=== PATIENT | female | born 1940 | race Caucasian/White ===

== ENCOUNTER 2016-06-10 10:31 | Emergency (ER) | payer MEDICARE, BC ==
[2016-06-10 10:48] VITALS: RESP 18
--- NOTE | 2016-06-10 10:54 | ED ---
Dizziness HPI - General Chief Complaint: Dizziness Stated Complaint: Dizziness Time Seen by Provider: 06/10/16 10:52 Source: patient Mode of arrival: EMS Limitations: no limitations - History of Present Illness Initial Comments: This patient is a 75-year-old woman who states that she started feeling spacey while she was using a step machine this morning. The patient states that she was at a rehab appointment to work on a shoulder injury. She was using a step or machine to move her upper extremities. She states that after about a minute and a half of this she began having what she described as feeling spacey. She denies that it was a frankly vertiginous feeling and also states that it wasn't exactly lightheadedness. She states that the therapist had her stop and rest and that they noted that her blood pressure was elevated above normal for her, with a systolic reading over 180. They then phoned EMS who brought her here. Patient denies other symptoms. MD Complaint: other ("Feeling spacey") Onset/Timin -: hour(s) Timing: sudden onset Description: other History of Same: No History of Trauma: No Severity: moderate Improves With: remaining still Worsens With: movement Associated Symptoms: denies other symptoms - Related Data Home Medications Medication Instructions Recorded Confirmed Albuterol Inhaler [Ventolin Hfa 1 - 2 puff INHALATION RT-QID PRN 06/10/16 Inhaler] Albuterol Nebulized [Ventolin 2.5 mg INHALATION RT-QID PRN 06/10/16 06/10/16 Nebulized] Ascorbic Acid [Vitamin C] 500 mg PO DAILY 06/10/16 06/10/16 Aspirin EC [Ecotrin Low Dose] 81 mg PO SUMOWEFR 06/10/16 06/10/16 Calcium Carbonate/Vitamin D3 1 tab PO DAILY 06/10/16 06/10/16 [Calcium 500-Vit D3 600 Tablet] Famotidine [Pepcid] 20 mg PO DAILY 06/10/16 06/10/16 Fluticasone Nasal [place] [Flonase 2 spr EA NOSTRIL DAILY PRN 06/10/16 06/10/16 Nasal [place]] Fluticasone/Salmeterol [Advair 1 puff INHALATION RT-BID 06/10/16 06/10/16 500-50 Diskus] Glucosamine Sulfate 500 mg PO DAILY 06/10/16 06/10/16 L.acidoph,Paracasei, B.lactis 1 cap PO DAILY 06/10/16 06/10/16 [Probiotic] Lansoprazole [Prevacid] 15 mg PO DAILY 06/10/16 06/10/16 Losartan [Cozaar] 50 mg PO DAILY 06/10/16 06/10/16 Multivitamins, Thera [Multivitamin] 1 tab PO DAILY 06/10/16 06/10/16 Simvastatin [Zocor] 40 mg PO HS 06/10/16 06/10/16 predniSONE 10 mg PO BID 06/10/16 06/10/16 Allergies Allergy/AdvReac Type Severity Reaction Status Date / Time cefaclor [From [facility]] Allergy Anaphylaxis Verified 06/10/16 11:44 Sulfa (Sulfonamide Allergy Rash/Hives Verified 06/10/16 11:44 Antibiotics) Review of Systems ROS Statement: Those systems with pertinent positive or pertinent negative responses have been documented in the HPI. ROS Other: All systems not noted in ROS Statement are negative. Constitutional: Denies: fever, chills, weakness Eyes: Denies: vision change ENT: Denies: congestion Respiratory: Denies: cough, dyspnea Cardiovascular: Denies: chest pain, palpitations, orthopnea, edema, syncope Gastrointestinal: Reports: nausea (Patient states she felt briefly nauseated in the ambulance while coming here, but that this has resolved.). Denies: abdominal pain, vomiting Genitourinary: Denies: dysuria, frequency, hematuria Musculoskeletal: Denies: back pain Skin: Denies: rash Neurological: Denies: headache, weakness, numbness, paresthesias, confusion Psychiatric: Reports: anxiety Past Medical History Past Medical History: Coronary Artery Disease (CAD), Cancer, Hypertension, Osteoarthritis (OA), Thyroid Disorder Additional Past Medical History / Comment(s): vertigo History of Any Multi-Drug Resistant Organisms: None Reported Past Surgical History: Appendectomy, Cholecystectomy, Hernia Repair, Orthopedic Surgery, Tubal Ligation Additional Past Surgical History / Comment(s): bladder suspension, parathyroidectomy carpel tunnel cataracts Past Psychological History: No Psychological Hx Reported Smoking Status: Former smoker Past Alcohol Use History: None Reported Past Drug Use History: None Reported General Exam Limitations: no limitations General appearance: alert, in no apparent distress Head exam: Present: atraumatic, normocephalic Eye exam: Present: normal appearance. Absent: scleral icterus, conjunctival injection, nystagmus ENT exam: Present: normal oropharynx Neck exam: Present: normal inspection Respiratory exam: Present: wheezes, decreased breath sounds. Absent: respiratory distress, rales, rhonchi, stridor, accessory muscle use Cardiovascular Exam: Present: regular rate, normal rhythm, normal heart sounds. Absent: systolic murmur, diastolic murmur, rubs, gallop GI/Abdominal exam: Present: soft. Absent: distended, tenderness, guarding, rebound, mass Extremities exam: Present: normal inspection, normal capillary refill. Absent: pedal edema, calf tenderness Back exam: Present: normal inspection. Absent: CVA tenderness (R), CVA tenderness (L) Neurological exam: Present: alert, oriented X3, CN II-XII intact. Absent: motor sensory deficit Skin exam: Present: warm, dry, intact, normal color. Absent: rash Course Vital Signs 06/10/16 06/10/16 10:42 12:52 Temperature 99.4 F Pulse Rate 89 81 Respiratory 18 18 Rate Blood Pressure 189/76 170/74 O2 Sat by Pulse 94 L 98 Oximetry EKG Findings - EKG Results: EKG: interpreted by ERMD, sinus rhythm (Rate 82 bpm), normal axis, normal QRS, normal ST/T, no acute changes - IA, Pacemaker, Normal: Normal tracing: normal tracing Medical Decision Making - Medical Decision Making This patient is a 75-year-old woman presenting for an episode of feeling "spacey " and some associated hypertension. The patient states that the symptoms have resolved. She is asymptomatic. Her blood pressure is improving here. I did discuss all of the findings with both the patient and with her physician, and offered the patient admission for further telemetry monitoring and further evaluation. The patient does state that she is feeling well and would much rather go home. She will return should any of the symptoms recur. Otherwise patient to follow-up with her physician for probable stress test, possible echocardiogram and possible duplex carotid. - Lab Data Result diagrams: 06/10/16 11:11 06/10/16 11:11 Lab Results 06/10/16 06/10/16 06/10/16 Range/Units 11:11 11:11 11:49 WBC 4.7 (3.8-10.6) k/uL RBC 4.55 (3.80-5.40) m/uL Hgb 13.9 (11.4-16.0) gm/dL Hct 41.3 (34.0-46.0) % MCV 90.9 (80.0-100.0) fL MCH 30.6 (25.0-35.0) pg MCHC 33.6 (31.0-37.0) g/dL RDW 12.9 (11.5-15.5) % Plt Count 193 (150-450) k/uL Neutrophils % 54 % Lymphocytes % 33 % Monocytes % 6 % Eosinophils % 2 % Basophils % 1 % Neutrophils # 2.6 (1.3-7.7) k/uL Lymphocytes # 1.5 (1.0-4.8) k/uL Monocytes # 0.3 (0-1.0) k/uL Eosinophils # 0.1 (0-0.7) k/uL Basophils # 0.0 (0-0.2) k/uL Sodium 144 (137-145) mmol/L Potassium 4.4 (3.5-5.1) mmol/L Chloride 105 (98-107) mmol/L Carbon Dioxide 30 (22-30) mmol/L Anion Gap 9 mmol/L BUN 16 (7-17) mg/dL Creatinine 0.50 L (0.52-1.04) mg/dL Est GFR (MDRD) Af Amer >60 (>60 ml/min/1.73 sqM) Est GFR (MDRD) Non-Af >60 (>60 ml/min/1.73 sqM) Glucose 106 H (74-99) mg/dL Calcium 9.5 (8.4-10.2) mg/dL Total Bilirubin 1.1 (0.2-1.3) mg/dL AST 22 (14-36) U/L ALT 33 (9-52) U/L Alkaline Phosphatase 80 (38-126) U/L Total Protein 6.8 (6.3-8.2) g/dL Albumin 4.3 (3.5-5.0) g/dL Urine Color Light Yellow Urine Appearance Clear (Clear) Urine pH 7.0 (5.0-8.0) Ur Specific [place] 1.006 (1.001-1.035) Urine Protein Negative (Negative) Urine Glucose (UA) Negative (Negative) Urine Ketones Negative (Negative) Urine Blood Negative (Negative) Urine Nitrate Negative (Negative) Urine Bilirubin Negative (Negative) Urine Urobilinogen <2.0 (<2.0) mg/dL Ur Leukocyte Esterase Negative (Negative) Disposition Clinical Impression: Hypertension Disposition: HOME SELF-CARE Condition: Good Instructions: Dizziness (ED), Hypertension (ED) Additional Instructions: As we discussed, follow-up with your doctor to arrange the stress test. Should your symptoms recur or if you are feeling worse in anyway return to the emergency department immediately. Referrals: John Sanz MD [Primary Care Provider] - 1-2 days
[2016-06-10 11:43] LABS: Basophils % (A) 1 %; CH 31.1; CHCM 34.4; Eosinophils # (A) 0.1 k/uL (0-0.7); Eosinophils % (A) 2 %; HCT 41.3 % (34.0-46.0); HDW 2.67; HGB 13.9 gm/dL (11.4-16.0); Luc # (Auto) 0.17; Luc % (Auto) 4; Lymphocytes # (A) 1.5 k/uL (1.0-4.8); Lymphocytes % (A) 33 %; MCH 30.6 pg (25.0-35.0); MCHC 33.6 g/dL (31.0-37.0); MCV 90.9 fL (80.0-100.0); Mean Platelet Volume 7.2; Monocytes # (A) 0.3 k/uL (0-1.0); Monocytes % (A) 6 %; Neutrophils # (A) 2.6 k/uL (1.3-7.7); Neutrophils % (A) 54 %; RBC 4.55 m/uL (3.80-5.40); RDW 12.9 % (11.5-15.5); WBC 4.7 k/uL (3.8-10.6); WBC (Perox) 4.91
[2016-06-10 12:00] LABS: ALT 33 U/L (9-52); AST 22 U/L (14-36); Alkaline Phosphatase 80 U/L (38-126); Anion Gap 9 mmol/L; Blood Urea Nitrogen 16 mg/dL (7-17); Calcium 9.5 mg/dL (8.4-10.2); Carbon Dioxide 30 mmol/L (22-30); Chloride 105 mmol/L (98-107); Glucose 106 mg/dL (74-99); Non-African American GFR(MDRD) >60 (>60 ml/min/1.73 sqM); Potassium 4.4 mmol/L (3.5-5.1); Sodium 144 mmol/L (137-145); Total Bilirubin 1.1 mg/dL (0.2-1.3); Total Protein 6.8 g/dL (6.3-8.2)
[2016-06-10 12:01] LABS: Appearance,Urine Clear (Clear); Bilirubin,Urine Negative (Negative); Glucose,Urine (UA) Negative (Negative); Ketones,Urine Negative (Negative); Leukocyte Esterase,Urine Negative (Negative); Nitrite,Urine Negative (Negative); Protein,Urine Negative (Negative); Specific Gravity,Urine 1.006 (1.001-1.035); UA Billing (MACRO vs. MICRO) CHEM; Urobilinogen,Urine <2.0 mg/dL (<2.0)
--- NOTE | 2016-06-10 12:12 | CT ---
EXAMINATION TYPE: CT brain wo con DATE OF EXAM: 06/10/2016 12:01 PM COMPARISON: NONE HISTORY: Patient complains of high blood pressure and near syncopal episode. Patient denies headache . CT DLP: 763.6 mGycm Automated exposure control for dose reduction was used. FINDINGS: There is no acute intracranial hemorrhage, mass effect, or midline shift identified. The ventricles and sulci are within normal limits in size. Periventricular white matter shows low attenuation. Ther e is cortical atrophy which is likely age-related. The globes are intact and the visualized sinuses a re clear. IMPRESSION: No acute intracranial hemorrhage, mass effect, or midline shift is seen.
--- NOTE | 2016-06-10 12:17 | XR ---
EXAMINATION TYPE: XR chest 1V portable DATE OF EXAM: 06/10/2016 12:09 PM COMPARISON: 02/04/2016 HISTORY: Dizziness TECHNIQUE: Single frontal view of the chest is obtained. FINDINGS: No pneumothorax. Previous surgery is noted. Hyperinflation is compatible COPD. Arthropathy of the shoulders. Chronic atelectasis right lung base noted which is stable from previous. IMPRESSION: 1. 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
[2016-06-10 14:00] VITALS: BP 171/80; PULSE 78; TEMP 98
== END 2016-06-10 14:00 | disposition home or self-care (01) ==
LOC: EC 10:31
DX: I10 Essential (primary) hypertension (principal); I25.10 Atherosclerotic heart disease of native coronary artery without angina pectoris; M19.90 Unspecified osteoarthritis, unspecified site; Z79.82 Long term (current) use of aspirin; Z79.51 Long term (current) use of inhaled steroids; Z79.52 Long term (current) use of systemic steroids; Z79.899 Other long term (current) drug therapy; Z88.1 Allergy status to other antibiotic agents; Z88.2 Allergy status to sulfonamides; Z87.891 Personal history of nicotine dependence
CPT/HCPCS: 36415; 70450; 71010; 80053; 81003; 85025; 93005; 99285

== ENCOUNTER → 2016-06-22 | Outpatient (CLI) | payer MEDICARE, BC ==
[~2016-06-22] MED LIST: REGADENOSON 0.4 MG/5 ML SYRINGE IV ONE
--- NOTE | 2016-06-22 11:31 | NM ---
EXAMINATION TYPE: NM stress lexiscan cardiolite DATE OF EXAM: 06/22/2016 10:58 AM COMPARISON: NONE HISTORY: 75-year-old female angina at rest TECHNIQUE: After the intravenous administration of 10.94 mCi Tc 99m Sestamibi - Cardiolite resting S PECT images acquired 45 minutes post injection. The patient received 0.4mg Lexiscan, 27.2 mCi Tc 99m Sestamibi - Stress images obtained [address] injection. 125 mg aminophylline was also administered. FINDINGS: Review of stress and rest SPECT images demonstrates a possible small fixed defect along the anterior mid to apical wall. No reversibility identified. The patient's heart is somewhat small and the auto matic tracking is felt to be inaccurate Gated analysis shows relatively normal wall motion but the es timated left ventricular ejection fraction is 36 %. EKG showed ST depression during the exam at appro ximately 3 minutes. TID is calculated at 0.91 which is within normal limits. IMPRESSION: Small heart. The automatic contour tracking is felt to be inaccurate. The gated images seem to show r elatively normal contractility but LVEF is calculated at 36%. Again, this is probably inaccurate. Th ere may be a small area of old infarct along the anterior mid to apical wall. However, no suspicious reversibility is seen. Further clinical testing as indicated.
--- NOTE | 2016-06-23 12:53 | EST ---
DATE OF SERVICE: 06/22/2016 AGE: 75Y SEX: F HT: 59" WT: 95 lbs. Lexiscan Cardiolite Stress Test *Heart Rate Blood Pressure *Rest: 84 Rest: 151/76 * *Max. Achieved: 107 Maximum BP: 168/62 85% PMHR: 122 100% PMHR: 143 *METS: - INDICATIONS: Chest pain, angina. MEDICATIONS: - Patient was given Lexiscan injection over a period of 15 seconds. Peak heart rate of 107 was achieved. Maximum blood pressure of 168/62 mmHg was noted. EKG shows normal sinus rhythm with normal HI interval and QRS duration with minimal nonspecific ST-T changes were noted during Lexiscan injection, again minor ST-T changes were noted. FINAL IMPRESSION: This electrocardiogram is not suggestive of ischemia. The results of the nuclear study will follow.
== END | disposition home or self-care (01) ==
LOC: RADNMMAIN 08:07
PROVIDERS: ATTEND Family Medicine
DX: I20.8 Other forms of angina pectoris (principal)
CPT/HCPCS: 93017; 78452; A9500; J2785

== ENCOUNTER 2016-07-17 21:22 | Emergency (ER) | payer MEDICARE, BC ==
[2016-07-17] MEDS ORDERED: ACETAMINOPHEN TAB 500 MG TAB PO STA (21:32)
[2016-07-17] MEDS: SODIUM CHLORIDE 0.9% 500 ML IV SCH ×2 (21:34→22:15)
[2016-07-17] MEDS ORDERED: IBUPROFEN IV 600 MG in SODIUM CHLORIDE 0.9% 250 ML IV STA (21:37)
--- NOTE | 2016-07-17 21:39 | ED ---
General Adult HPI - General Stated complaint: SOB Time Seen by Provider: 07/17/16 21:22 - History of Present Illness Initial comments: This is a 75-year-old female presents emergency Department stating that she has been coughing and short of breath lately. Patient states she's been wearing her oxygen all day instead of just at night. Patient states she's had chills as well. Patient states she become much more weak and nauseous at the point where she cannot continue to get around and help her who is in hospice. She called the events this point time. Patient denies any chest pain or palpitations. Patient denies any headache patient denies numbness weakness. Patient denies any abdominal pain patient states she is nauseated and has had the dry heaves but has had no diarrhea. Patient states she did get a flu shot this year as well. Patient denies any dysuria hematuria urinary frequency - Related Data Home Medications Medication Instructions Recorded Confirmed Albuterol Inhaler [Ventolin Hfa 1 - 2 puff INHALATION RT-QID PRN 06/10/16 Inhaler] Albuterol Nebulized [Ventolin 2.5 mg INHALATION RT-QID PRN 06/10/16 06/10/16 Nebulized] Ascorbic Acid [Vitamin C] 500 mg PO DAILY 06/10/16 06/10/16 Aspirin EC [Ecotrin Low Dose] 81 mg PO SUMOWEFR 06/10/16 06/10/16 Calcium Carbonate/Vitamin D3 1 tab PO DAILY 06/10/16 06/10/16 [Calcium 500-Vit D3 600 Tablet] Famotidine [Pepcid] 20 mg PO DAILY 06/10/16 06/10/16 Fluticasone Nasal [place] [Flonase 2 spr EA NOSTRIL DAILY PRN 06/10/16 06/10/16 Nasal [place]] Fluticasone/Salmeterol [Advair 1 puff INHALATION RT-BID 06/10/16 06/10/16 500-50 Diskus] Glucosamine Sulfate 500 mg PO DAILY 06/10/16 06/10/16 L.acidoph,Paracasei, B.lactis 1 cap PO DAILY 06/10/16 06/10/16 [Probiotic] Lansoprazole [Prevacid] 15 mg PO DAILY 06/10/16 06/10/16 Losartan [Cozaar] 50 mg PO DAILY 06/10/16 06/10/16 Multivitamins, Thera [Multivitamin] 1 tab PO DAILY 06/10/16 06/10/16 Simvastatin [Zocor] 40 mg PO HS 06/10/16 06/10/16 predniSONE 10 mg PO BID 06/10/16 06/10/16 Previous Rx's Medication Instructions Recorded Levofloxacin [Levaquin] 750 mg PO DAILY #10 tab 07/17/16 Allergies Allergy/AdvReac Type Severity Reaction Status Date / Time cefaclor [From Ceclor] Allergy Anaphylaxis Verified 07/17/16 21:34 Sulfa (Sulfonamide Allergy Rash/Hives Verified 07/17/16 21:34 Antibiotics) Review of Systems ROS Statement: Those systems with pertinent positive or pertinent negative responses have been documented in the HPI. ROS Other: All systems not noted in ROS Statement are negative. Past Medical History Past Medical History: Coronary Artery Disease (CAD), Cancer, Hypertension, Osteoarthritis (OA), Thyroid Disorder Additional Past Medical History / Comment(s): vertigo History of Any Multi-Drug Resistant Organisms: None Reported Past Surgical History: Appendectomy, Cholecystectomy, Hernia Repair, Orthopedic Surgery, Tubal Ligation Additional Past Surgical History / Comment(s): bladder suspension, parathyroidectomy carpel tunnel cataracts Past Psychological History: No Psychological Hx Reported Smoking Status: Former smoker Past Alcohol Use History: None Reported Past Drug Use History: None Reported General Exam - General Exam Comments Initial Comments: GENERAL: Patient is well-developed and well-nourished. Patient is nontoxic and well- hydrated and is in moderate distress. Patient's temperature was 102.4 ENT: Neck is soft and supple. No significant lymphadenopathy is noted. Oropharynx is clear. Moist mucous membranes. Neck has full range of motion without eliciting any pain. EYES: The sclera were anicteric and conjunctiva were pink and moist. Extraocular movements were intact and pupils were equal round and reactive to light. Eyelids were unremarkable. PULMONARY: Unlabored respirations. Good breath sounds bilaterally. Breath sounds on the right CARDIOVASCULAR: Patient is tachycardic at about 140 beats minute ABDOMEN: Soft and nontender with normal bowel sounds. No palpable organomegaly was noted. There is no palpable pulsatile mass. SKIN: Skin is clear with no lesions or rashes and otherwise unremarkable. NEUROLOGIC: Patient is alert and oriented x3. Cranial nerves II through XII are grossly intact. Motor and sensory are also intact. Normal speech, volume and content. Symmetrical smile. MUSCULOSKELETAL: Normal extremities with adequate strength and full range of motion. No lower extremity swelling or edema. No calf tenderness. LYMPHATICS: No significant lymphadenopathy is noted PSYCHIATRIC: Normal psychiatric evaluation. Normal interpersonal interactions appears functionally intact in deals appropriately with others. No signs of depression. No signs of anxiety. Course Vital Signs 07/17/16 21:34 Temperature 102.2 F H Pulse Rate 138 H Respiratory 28 H Rate Blood Pressure 158/86 O2 Sat by Pulse 98 Oximetry Medical Decision Making - Medical Decision Making EKG shows sinus tachycardia at 140 beats a minute HI interval 126 dresses 70 QT interval is 282 QTC is 4:30. Patient's EKG shows no ST segment elevation or depression or T-wave abdomen is noted Patient is x-ray shows a left lower lobe pneumonia. I went back in to talk to the patient she refused to stay she stated she has a home she has to take care of and she wanted to go home and not stay in the emergency department. - Lab Data Result diagrams: 07/17/16 21:50 07/17/16 21:50 Lab Results 07/17/16 07/17/16 07/17/16 Range/Units 21:50 21:50 21:50 WBC 15.5 H (3.8-10.6) k/uL RBC 4.23 (3.80-5.40) m/uL Hgb 13.3 (11.4-16.0) gm/dL Hct 38.0 (34.0-46.0) % MCV 89.9 (80.0-100.0) fL MCH 31.6 (25.0-35.0) pg MCHC 35.2 (31.0-37.0) g/dL RDW 12.7 (11.5-15.5) % Plt Count 170 (150-450) k/uL Neutrophils % 91 % Lymphocytes % 4 % Monocytes % 4 % Eosinophils % 0 % Basophils % 1 % Neutrophils # 14.1 H (1.3-7.7) k/uL Lymphocytes # 0.5 L (1.0-4.8) k/uL Monocytes # 0.6 (0-1.0) k/uL Eosinophils # 0.0 (0-0.7) k/uL Basophils # 0.1 (0-0.2) k/uL PT (9.0-12.0) sec INR (<1.1) APTT (22.0-30.0) sec Sodium 135 L (137-145) mmol/L Potassium 4.4 (3.5-5.1) mmol/L Chloride 98 (98-107) mmol/L Carbon Dioxide 24 (22-30) mmol/L Anion Gap 13 mmol/L BUN 15 (7-17) mg/dL Creatinine 0.60 (0.52-1.04) mg/dL Est GFR (MDRD) Af Amer >60 (>60 ml/min/1.73 sqM) Est GFR (MDRD) Non-Af >60 (>60 ml/min/1.73 sqM) Glucose 119 H (74-99) mg/dL Plasma Lactic Acid Addy (0.7-2.0) mmol/L Calcium 9.1 (8.4-10.2) mg/dL Total Bilirubin 1.7 H (0.2-1.3) mg/dL AST 21 (14-36) U/L ALT 27 (9-52) U/L Alkaline Phosphatase 80 (38-126) U/L Total Creatine Kinase 81 (30-135) U/L CK-MB (CK-2) 1.4 (0.0-2.4) ng/mL CK-MB (CK-2) Rel Index 1.7 Troponin I <0.012 (0.000-0.034) ng/mL Total Protein 6.4 (6.3-8.2) g/dL Albumin 3.8 (3.5-5.0) g/dL Cortisol 27 ug/dL Urine Color Urine Appearance (Clear) Urine pH (5.0-8.0) Ur Specific [place] (1.001-1.035) Urine Protein (Negative) Urine Glucose (UA) (Negative) Urine Ketones (Negative) Urine Blood (Negative) Urine Nitrite (Negative) Urine Bilirubin (Negative) Urine Urobilinogen (<2.0) mg/dL Ur Leukocyte Esterase (Negative) Urine RBC (0-5) /hpf Urine WBC (0-5) /hpf Ur Squamous Epith Cells (0-4) /hpf Urine Bacteria (None) /hpf Hyaline Casts (0-2) /lpf Urine Mucus (None) /hpf Influenza Type A RNA (Not Detectd) Influenza Type B (PCR) (Not Detectd) 07/17/16 07/17/16 07/17/16 Range/Units 21:50 21:50 21:50 WBC (3.8-10.6) k/uL RBC (3.80-5.40) m/uL Hgb (11.4-16.0) gm/dL Hct (34.0-46.0) % MCV (80.0-100.0) fL MCH (25.0-35.0) pg MCHC (31.0-37.0) g/dL RDW (11.5-15.5) % Plt Count (150-450) k/uL Neutrophils % % Lymphocytes % % Monocytes % % Eosinophils % % Basophils % % Neutrophils # (1.3-7.7) k/uL Lymphocytes # (1.0-4.8) k/uL Monocytes # (0-1.0) k/uL Eosinophils # (0-0.7) k/uL Basophils # (0-0.2) k/uL PT 10.1 (9.0-12.0) sec INR 1.0 (<1.1) APTT 26.6 (22.0-30.0) sec Sodium (137-145) mmol/L Potassium (3.5-5.1) mmol/L Chloride (98-107) mmol/L Carbon Dioxide (22-30) mmol/L Anion Gap mmol/L BUN (7-17) mg/dL Creatinine (0.52-1.04) mg/dL Est GFR (MDRD) Af Amer (>60 ml/min/1.73 sqM) Est GFR (MDRD) Non-Af (>60 ml/min/1.73 sqM) Glucose (74-99) mg/dL Plasma Lactic Acid Addy 1.2 (0.7-2.0) mmol/L Calcium (8.4-10.2) mg/dL Total Bilirubin (0.2-1.3) mg/dL AST (14-36) U/L ALT (9-52) U/L Alkaline Phosphatase (38-126) U/L Total Creatine Kinase (30-135) U/L CK-MB (CK-2) (0.0-2.4) ng/mL CK-MB (CK-2) Rel Index Troponin I (0.000-0.034) ng/mL Total Protein (6.3-8.2) g/dL Albumin (3.5-5.0) g/dL Cortisol ug/dL Urine Color Urine Appearance (Clear) Urine pH (5.0-8.0) Ur Specific [place] (1.001-1.035) Urine Protein (Negative) Urine Glucose (UA) (Negative) Urine Ketones (Negative) Urine Blood (Negative) Urine Nitrite (Negative) Urine Bilirubin (Negative) Urine Urobilinogen (<2.0) mg/dL Ur Leukocyte Esterase (Negative) Urine RBC (0-5) /hpf Urine WBC (0-5) /hpf Ur Squamous Epith Cells (0-4) /hpf Urine Bacteria (None) /hpf Hyaline Casts (0-2) /lpf Urine Mucus (None) /hpf Influenza Type A RNA Not Detected (Not Detectd) Influenza Type B (PCR) Not Detected (Not Detectd) 07/17/16 Range/Units 21:50 WBC (3.8-10.6) k/uL RBC (3.80-5.40) m/uL Hgb (11.4-16.0) gm/dL Hct (34.0-46.0) % MCV (80.0-100.0) fL MCH (25.0-35.0) pg MCHC (31.0-37.0) g/dL RDW (11.5-15.5) % Plt Count (150-450) k/uL Neutrophils % % Lymphocytes % % Monocytes % % Eosinophils % % Basophils % % Neutrophils # (1.3-7.7) k/uL Lymphocytes # (1.0-4.8) k/uL Monocytes # (0-1.0) k/uL Eosinophils # (0-0.7) k/uL Basophils # (0-0.2) k/uL PT (9.0-12.0) sec INR (<1.1) APTT (22.0-30.0) sec Sodium (137-145) mmol/L Potassium (3.5-5.1) mmol/L Chloride (98-107) mmol/L Carbon Dioxide (22-30) mmol/L Anion Gap mmol/L BUN (7-17) mg/dL Creatinine (0.52-1.04) mg/dL Est GFR (MDRD) Af Amer (>60 ml/min/1.73 sqM) Est GFR (MDRD) Non-Af (>60 ml/min/1.73 sqM) Glucose (74-99) mg/dL Plasma Lactic Acid Addy (0.7-2.0) mmol/L Calcium (8.4-10.2) mg/dL Total Bilirubin (0.2-1.3) mg/dL AST (14-36) U/L ALT (9-52) U/L Alkaline Phosphatase (38-126) U/L Total Creatine Kinase (30-135) U/L CK-MB (CK-2) (0.0-2.4) ng/mL CK-MB (CK-2) Rel Index Troponin I (0.000-0.034) ng/mL Total Protein (6.3-8.2) g/dL Albumin (3.5-5.0) g/dL Cortisol ug/dL Urine Color Yellow Urine Appearance Cloudy H (Clear) Urine pH 6.0 (5.0-8.0) Ur Specific [place] 1.024 (1.001-1.035) Urine Protein 1+ H (Negative) Urine Glucose (UA) Negative (Negative) Urine Ketones 3+ H (Negative) Urine Blood Trace H (Negative) Urine Nitrite Negative (Negative) Urine Bilirubin Negative (Negative) Urine Urobilinogen <2.0 (<2.0) mg/dL Ur Leukocyte Esterase Large H (Negative) Urine RBC 2 (0-5) /hpf Urine WBC 20 H (0-5) /hpf Ur Squamous Epith Cells 52 H (0-4) /hpf Urine Bacteria Occasional H (None) /hpf Hyaline Casts 31 H (0-2) /lpf Urine Mucus Occasional H (None) /hpf Influenza Type A RNA (Not Detectd) Influenza Type B (PCR) (Not Detectd) Disposition Clinical Impression: Pneumonia Disposition: HOME SELF-CARE Instructions: Bacterial Pneumonia (ED) Prescriptions: Levofloxacin [Levaquin] 750 mg PO DAILY #10 tab Referrals: John Sanz MD [Primary Care Provider] - 1-2 days Time of Disposition: 23:13
[2016-07-17 22:20] LABS: Basophils # (A) 0.1 k/uL (0-0.2); Basophils % (A) 1 %; CH 31.1; CHCM 34.8; Eosinophils % (A) 0 %; HDW 2.63; HGB 13.3 gm/dL (11.4-16.0); Luc # (Auto) 0.15; Luc % (Auto) 1; Lymphocytes # (A) 0.5 k/uL (1.0-4.8); Lymphocytes % (A) 4 %; MCH 31.6 pg (25.0-35.0); MCHC 35.2 g/dL (31.0-37.0); MCV 89.9 fL (80.0-100.0); Mean Platelet Volume 7.8; Monocytes # (A) 0.6 k/uL (0-1.0); Monocytes % (A) 4 %; Neutrophils # (A) 14.1 k/uL (1.3-7.7); Neutrophils % (A) 91 %; RBC 4.23 m/uL (3.80-5.40); RDW 12.7 % (11.5-15.5); WBC 15.5 k/uL (3.8-10.6); WBC (Perox) 15.36
[2016-07-17] MEDS ORDERED: ONDANSETRON 4 MG/2 ML VIAL IVP STA (22:25)
[2016-07-17] MEDS ORDERED: ACETAMINOPHEN IV (For NPO) 1,000 MG in EMPTY BAG 1 BAG IVPB STA (22:25)
[2016-07-17 22:32] LABS: Partial Thromboplastin Time 26.6 sec (22.0-30.0); Prothrombin Time 10.1 sec (9.0-12.0)
--- NOTE | 2016-07-17 22:32 | XR ---
EXAM: XR Chest, 2 Views. CLINICAL HISTORY: Reason: Fever TECHNIQUE: Frontal and lateral views of the chest. COMPARISON: Chest radiograph on 06/10/2016 FINDINGS: Hardware: Stable surgical clips in the region of the right hilum. Lungs/pleura: Again seen is hyperinflation of the lungs, suggestive of COPD. Stable linear opacities at the right lung base likely representing atelectasis versus scarring. Mild opacity at the left lung base may also represent atelectasis. No focal consolidation. No pleural effusion or pneumothorax. Heart/mediastinum: Atherosclerotic calcifications in the aorta. No cardiomegaly. Soft tissues: Unremarkable. Bones: Degenerative changes of the left shoulder and acromioclavicular joint. No acute fracture. Upper abdomen: Unremarkable. IMPRESSION: 1. Stable right basilar atelectasis versus scarring. Mild opacity at the left lung base also represent atelectasis, but developing pneumonia is not entirely excluded. 2. Stable hyperinflation of the lungs, compatible with COPD.
[2016-07-17 22:36] LABS: Appearance,Urine Cloudy (Clear); Bacteria,Urine Occasional /hpf; Bilirubin,Urine Negative (Negative); Glucose,Urine (UA) Negative (Negative); Ketones,Urine 3+ (Negative); Leukocyte Esterase,Urine Large (Negative); Mucus,Urine Occasional /hpf; Nitrite,Urine Negative (Negative); Particle Count 25903; Protein,Urine 1+ (Negative); RBC,Urine 2 /hpf (0-5); Specific Gravity,Urine 1.024 (1.001-1.035); Squamous Epithelial Cell,Urine 52 /hpf (0-4); UA Billing (MACRO vs. MICRO) MICRO; Urobilinogen,Urine <2.0 mg/dL (<2.0); WBC,Urine 20 /hpf (0-5)
[2016-07-17 22:39] LABS: ALT 27 U/L (9-52); AST 21 U/L (14-36); Alkaline Phosphatase 80 U/L (38-126); Anion Gap 13 mmol/L; Blood Urea Nitrogen 15 mg/dL (7-17); Calcium 9.1 mg/dL (8.4-10.2); Carbon Dioxide 24 mmol/L (22-30); Chloride 98 mmol/L (98-107); Glucose 119 mg/dL (74-99); Non-African American GFR(MDRD) >60 (>60 ml/min/1.73 sqM); Potassium 4.4 mmol/L (3.5-5.1); Sodium 135 mmol/L (137-145); Total Bilirubin 1.7 mg/dL (0.2-1.3); Total Protein 6.4 g/dL (6.3-8.2)
[2016-07-17 22:41] LABS: Creatine Kinase 81 U/L (30-135)
[2016-07-17 22:53] LABS: Creatine Kinase MB 1.4 ng/mL (0.0-2.4); Troponin I <0.012 ng/mL (0.000-0.034)
[2016-07-17] MEDS ORDERED: LEVOFLOXACIN 750MG-D5W PMX 750 MG in DEXTROSE/WATER 1 150ML.BAG IVPB STA (23:09)
[2016-07-17] MEDS ORDERED: LEVOFLOXACIN 750 MG TAB PO STA (23:14)
[2016-07-17] MEDS ORDERED: LEVOFLOXACIN 750MG-D5W PMX 750 MG in DEXTROSE/WATER 1 150ML.BAG IVPB SCH (23:15)
[2016-07-17 23:21] VITALS: RESP 20; TEMP 100.5
[2016-07-17 23:49] VITALS: BP 114/63; PULSE 99
== END 2016-07-17 23:47 | disposition home or self-care (01) ==
LOC: EC 21:22
DX: J18.9 Pneumonia, unspecified organism (principal); Z99.81 Dependence on supplemental oxygen; Z79.899 Other long term (current) drug therapy; Z87.891 Personal history of nicotine dependence; Z88.1 Allergy status to other antibiotic agents; Z88.0 Allergy status to penicillin
CPT/HCPCS: 99285; 96365; 96375; 96361; 36415; 93005; 80053; 82533; 82550; 82553; 83605; 84484; 85025; 85610; 85730; 81001; 87040; 87086; 87502; 71020; J2405; J0131; J1741

== ENCOUNTER → 2016-09-26 | Day surgery (SDC) | payer MEDICARE, BC ==
[2016-09-22 16:02] VITALS: BMI 19.2
[~2016-09-26] MED LIST changes: +MIDAZOLAM 2 MG/2 ML VIAL ONE; -REGADENOSON 0.4 MG/5 ML SYRINGE IV ONE; +SODIUM CHLORIDE 0.9% 1,000 ML IV SCH; +SODIUM CHLORIDE 0.9% 250 ML IV ONE; +fentaNYL (PF) 50 MCG/ML 2 ML AMP IV ONE; +fentaNYL (PF) 50 MCG/ML 2 ML AMP ONE
[2016-09-26] MEDS: BENZOCAINE SPRAY 100 APPLIC/CAN TOPICAL ONE ×2 (07:57→08:03)
[2016-09-26] MEDS: MIDAZOLAM 2 MG/2 ML VIAL IVP ONE ×2 (08:07→08:10)
[2016-09-26 08:32] VITALS: RESP 16
--- NOTE | 2016-09-26 08:55 | ECHOT ---
DATE OF SERVICE: INDICATION: Pulmonary hypertension. This is a 76-year-old lady who was advised to undergo a transesophageal echo given the valvular heart disease and pulmonary hypertension noted on 2-D echo. PROCEDURE NOTE: After obtaining informed consent, transesophageal echocardiogram was performed in the left lateral position using an Omni probe. Local and IV sedation were obtained using Xylocaine spray, intravenous Versed and fentanyl. Patient tolerated the procedure well without any obvious immediate complications. The total sedation was time was 15 minutes. FINDINGS: 1. AORTIC VALVE: Aortic valve is a 3 leaflet valve. There is mild aortic regurgitation noted. 2. MITRAL VALVE: Mitral valve is anatomically normal. There is mild mitral regurgitation noted. 3. INTERATRIAL SEPTUM: There is no evidence of [id number]-[id number] shunt by color flow Doppler. There is right to left shunt noted with agitated saline contrast study. 4. Left atrium appears mildly enlarged. 5. Right atrium and right ventricle seen within normal limits. 6. Left ventricle has normal size and shows mild LV systolic dysfunction with an ejection fraction of around 45%. 7. Left atrial appendage appears normal. 8. Aortic root measures normally. There is moderate atherosclerotic changes noted. 9. There is mild tricuspid regurgitation noted. CONCLUSION: 1. Mild mitral and aortic regurgitation noted. 2. There is evidence of right to left shunt by agitated saline contrast study. 3. I reviewed information with the patient. She does not require further cardiac workup at this time. 4. The pulmonary hypertension is probably related to the underlying lung disease.
[2016-09-26 09:24] VITALS: TEMP 98
[2016-09-26 10:41] VITALS: PULSE 60
[2016-09-26 10:42] VITALS: BP 127/58
== END ==
LOC: CATHCVL 06:50
PROVIDERS: ATTEND Internal Medicine Cardiovascular Disease
DX: I08.3 Combined rheumatic disorders of mitral, aortic and tricuspid valves (principal); I27.2 Other secondary pulmonary hypertension; I70.0 Atherosclerosis of aorta; I10 Essential (primary) hypertension; E78.5 Hyperlipidemia, unspecified; Z79.82 Long term (current) use of aspirin; Z79.51 Long term (current) use of inhaled steroids; Z79.52 Long term (current) use of systemic steroids; Z79.899 Other long term (current) drug therapy; Z82.49 Family history of ischemic heart disease and other diseases of the circulatory system; Z88.1 Allergy status to other antibiotic agents; Z88.2 Allergy status to sulfonamides
CPT/HCPCS: 93312; 93320; 93325; J2250; J3010

== ENCOUNTER → 2016-11-03 | Outpatient (CLI) | payer MEDICARE, BC ==
--- NOTE | 2016-11-04 09:47 | MM ---
Reason for exam: screening (asymptomatic). Last mammogram was performed 1 year ago. History: Patient is postmenopausal and has history of other cancer at age 59. Family history of breast cancer in maternal aunt. Benign excisional biopsy of the left breast, 1991. Took hormonal contraceptives beginning at age 24. Physical Findings: A clinical breast exam by your physician is recommended on an annual basis and results should be correlated with mammographic findings. MG 3D Screening Mammo W/Cad Bilateral CC and MLO view(s) were taken. Prior study comparison: October 30, 2015, bilateral MG 3d screening mammo w/cad. July 23, 2014, mammogram, performed at [place]. There are scattered fibroglandular densities. No significant changes when compared with prior studies. ASSESSMENT: Benign, BI-RAD 2 RECOMMENDATION: Routine screening mammogram of both breasts in 1 year.
== END | disposition home or self-care (01) ==
LOC: RADMAMWWP 09:12
PROVIDERS: ATTEND Family Medicine
DX: Z12.31 Encounter for screening mammogram for malignant neoplasm of breast (principal)
CPT/HCPCS: 77063; G0202

== ENCOUNTER → 2017-07-14 | Outpatient (CLI) | payer MEDICARE ==
--- NOTE | 2017-07-15 10:40 | XR ---
Left knee HISTORY: Altered mental status, pain 3 views of the left knee Chondrocalcinosis is present along the menisci. There is joint space loss in the medial compartment, subchondral sclerosis. Alignment is maintained, bone mineralization is reduced. No evident joint effu brittny. 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
--- NOTE | 2017-07-15 10:45 | CT ---
EXAMINATION TYPE: CT brain wo con DATE OF EXAM: 07/14/2017 COMPARISON: Prior CT brain 06/10/2016 HISTORY: memory loss CT DLP: 1121 mGycm Automated exposure control for dose reduction was used. Helical acquisition through the brain. FINDINGS: There are cerebral vascular calcifications present. No hemorrhage or hydrocephalus. White matter demy elination changes are again noted. The calvarium is intact. Paranasal sinuses and mastoid air cells a s visualized are normal. IMPRESSION: NO ACUTE ABNORMALITY, STABLE EXAM. AGE-RELATED CHANGES OF ATROPHY AND PROBABLE CHRONIC SMALL VESSEL I SCHEMIA.
== END | disposition home or self-care (01) ==
LOC: RADCTMAIN 17:11
PROVIDERS: ATTEND Family Medicine
DX: M17.12 Unilateral primary osteoarthritis, left knee (principal); G31.1 Senile degeneration of brain, not elsewhere classified
CPT/HCPCS: 70450

== ENCOUNTER → 2018-07-18 | Outpatient (CLI) | payer MEDICARE ==
--- NOTE | 2018-07-18 16:17 | XR ---
EXAMINATION TYPE: XR Hip Complete 2 views LT, XR knee complete 3 views LT DATE OF EXAM: 07/18/2018 COMPARISON: NONE HISTORY: 77-year-old female with joint pain FINDINGS: Left hip: Mild to moderate axial joint space narrowing with marginal spurring. No acute fracture, subluxation, or dislocation. Left knee: Mild narrowing of joint space in the medial compartment. There is some meniscal chondrocalcinosis dem onstrated. Small infrapatellar knee joint effusion. Extensor mechanism remains intact. No acute fract ure, subluxation, dislocation. IMPRESSION: 1. Left hip: Mild to moderate left apical weight. 2. Left knee: Mild joint space narrowing within the medial compartment. A weight-bearing view could b lashonda assess the degree of cartilage and joint space loss. Meniscal chondrocalcinosis could be idiopa thic or could reflect underlying CPPD. Small knee joint effusion.
--- NOTE | 2018-07-19 10:35 | MM ---
Reason for exam: screening (asymptomatic). Last mammogram was performed 1 year and 8 months ago. History: Patient is postmenopausal and has history of other cancer at age 59. Family history of breast cancer in maternal aunt. Benign excisional biopsy of the left breast, 1991. Took hormonal contraceptives beginning at age 24. Physical Findings: A clinical breast exam by your physician is recommended on an annual basis and results should be correlated with mammographic findings. MG Screening Mammo w CAD Bilateral CC and MLO view(s) were taken. Prior study comparison: November 03, 2016, bilateral MG 3d screening mammo w/cad. October 30, 2015, bilateral MG 3d screening mammo w/cad. There are scattered fibroglandular densities. No significant changes when compared with prior studies. ASSESSMENT: Negative, BI-RAD 1 RECOMMENDATION: Routine screening mammogram of both breasts in 1 year.
== END | disposition home or self-care (01) ==
LOC: RADMAMWWP 15:04
PROVIDERS: ATTEND Family Medicine
DX: Z12.31 Encounter for screening mammogram for malignant neoplasm of breast (principal); M25.862 Other specified joint disorders, left knee
CPT/HCPCS: 73502; 77067

== ENCOUNTER 2019-04-06 17:15 | Emergency (ER) | payer MEDICARE ==
[2019-04-06] MEDS ORDERED: diphenhydrAMINE 50 MG/ML 1 ML VIAL IVP STA (17:25)
[2019-04-06] MEDS ORDERED: METOCLOPRAMIDE 5 MG/ML 2 ML VIAL IVP STA (17:25)
[2019-04-06 17:30] VITALS: RESP 18; TEMP 98.2
[2019-04-06 18:24] LABS: ALT 19 U/L (4-34); AST 24 U/L (14-36); African American GFR (CKD) >90 (>60 ml/min/1.73 sqM); Alkaline Phosphatase 74 U/L (38-126); Anion Gap 5 mmol/L; Blood Urea Nitrogen 17 mg/dL (7-17); Calcium 9.4 mg/dL (8.4-10.2); Carbon Dioxide 32 mmol/L (22-30); Chloride 102 mmol/L (98-107); Glucose 119 mg/dL (74-99); Non-African American GFR(CKD) >90 (>60 ml/min/1.73 sqM); Potassium 3.7 mmol/L (3.5-5.1); Sodium 139 mmol/L (137-145); Total Bilirubin 1.3 mg/dL (0.2-1.3); Total Protein 6.6 g/dL (6.3-8.2)
[2019-04-06 18:29] LABS: Basophils % (A) 0 %; Eosinophils % (A) 1 %; HCT 36.8 % (34.0-46.0); HGB 12.6 gm/dL (11.4-16.0); Lymphocytes # (A) 0.8 k/uL (1.0-4.8); Lymphocytes % (A) 14 %; MCH 31.1 pg (25.0-35.0); MCHC 34.4 g/dL (31.0-37.0); MCV 90.4 fL (80.0-100.0); Mean Platelet Volume 7.1; Monocytes # (A) 0.4 k/uL (0-1.0); Monocytes % (A) 6 %; Neutrophils # (A) 4.6 k/uL (1.3-7.7); Neutrophils % (A) 77 %; Platelet Count 194 k/uL (150-450); RBC 4.07 m/uL (3.80-5.40); RDW 13.6 % (11.5-15.5); WBC 5.9 k/uL (3.8-10.6)
--- NOTE | 2019-04-06 19:08 | CT ---
EXAMINATION TYPE: CT brain wo con DATE OF EXAM: 04/06/2019 COMPARISON: 07/14/2017 HISTORY: Headaches without injury. CT DLP: 1080.4 mGycm Automated exposure control for dose reduction was used. There is some cerebral cortical atrophy. There is no mass effect nor midline shift. There is no sign of intracranial hemorrhage. Calvarium is intact. IMPRESSION: Mild atrophy. No acute intracranial abnormality. No change.
[2019-04-06] MEDS ORDERED: KETOROLAC 30 MG/ML 1 ML VIAL IVP STA (19:32)
[2019-04-06] MEDS ORDERED: MAGNESIUM OXIDE 400 MG TAB PO STA (19:33)
--- NOTE | 2019-04-06 19:35 | ED ---
Headache HPI - General Chief Complaint: Headache Stated Complaint: Hypertension, Headache Time Seen by Provider: 04/06/19 17:25 Mode of arrival: EMS Limitations: no limitations - History of Present Illness Initial Comments: The patient is an 78-year-old female past medical history of hypertension, hyperlipidemia and COPD who presents emergency room with reported headache. She states that she had a mild headache last night. When she awoke this morning it was much worse. No sudden onset or maximal intensity. She took her blood pressure and was noted to be extremely high. She was on Losartan which was then recalled. Her primary care physician did change her to another ARB however was causing her blood pressure to go low. She was last on a half dose of the medication but then several weeks ago was completely taken off the medication. She has not been taking her blood pressures at home. She did take a Motrin around 10 AM was able to sleep for a little bit. She was having photophobia. No recent fevers or chills. Denies any visual changes. No blunt head trauma. Denies any unilateral numbness or weakness. No neck pain or stiffness. No sick contacts or recent travel. Admits to nausea with dry heaving. When the nausea started she decided to call EMS. They reported blood pressures of 200 systolic. Denies chest pain or shortness of breath. She is chronically on home O2. There are no other alleviating, precipitating or modifying factors - Related Data Home Medications Medication Instructions Recorded Confirmed Albuterol Nebulized [Ventolin 2.5 mg INHALATION QID PRN 06/10/16 09/26/16 Nebulized] Ascorbic Acid [Vitamin C] 500 mg PO DAILY 06/10/16 09/26/16 Aspirin EC [Ecotrin Low Dose] 81 mg PO SUMOWEFR 06/10/16 09/26/16 Calcium Carbonate/Vitamin D3 1 tab PO DAILY 06/10/16 09/26/16 [Calcium 500-Vit D3 600 Tablet] Famotidine [Pepcid] 20 mg PO DAILY 06/10/16 09/26/16 Fluticasone Nasal [place] [Flonase 2 spr EA NOSTRIL DAILY PRN 06/10/16 09/26/16 Nasal [place]] Fluticasone/Salmeterol [Advair 1 puff INHALATION BID 06/10/16 09/26/16 500-50 Diskus] Glucosamine Sulfate 500 mg PO DAILY 06/10/16 09/26/16 L.acidoph,Paracasei, B.lactis 1 cap PO DAILY 06/10/16 09/26/16 [Probiotic] Lansoprazole [Prevacid] 15 mg PO DAILY 06/10/16 09/26/16 Losartan [Cozaar] 100 mg PO 2000 06/10/16 09/26/16 Multivitamins, Thera [Multivitamin] 1 tab PO DAILY 06/10/16 09/26/16 Simvastatin [Zocor] 40 mg PO HS 06/10/16 09/26/16 predniSONE 10 mg PO BID PRN 06/10/16 09/26/16 Albuterol Sulfate [Proair Hfa] 2 puff INHALATION QID PRN 09/22/16 09/26/16 Atenolol [Tenormin] 25 mg PO DAILY 09/22/16 09/26/16 Allergies Allergy/AdvReac Type Severity Reaction Status Date / Time cefaclor [From Ceclor] Allergy Anaphylaxis Verified 09/26/16 07:19 Sulfa (Sulfonamide Allergy hives, Verified 09/26/16 07:19 Antibiotics) throat swelling Review of Systems ROS Statement: Those systems with pertinent positive or pertinent negative responses have been documented in the HPI. ROS Other: All systems not noted in ROS Statement are negative. Past Medical History Past Medical History: Coronary Artery Disease (CAD), Cancer, COPD, GERD/Reflux, Hyperlipidemia, Hypertension, Osteoarthritis (OA), Pneumonia Additional Past Medical History / Comment(s): vertigo, hx lung cancer, SOB, tachycardia, oxygen 2L at night and PRN, hiatal hernia, hx ulcer, History of Any Multi-Drug Resistant Organisms: None Reported Past Surgical History: Appendectomy, Bladder Surgery, Cholecystectomy, Hernia Repair, Orthopedic Surgery, Tubal Ligation Additional Past Surgical History / Comment(s): bladder suspension, parathyroidectomy, rt carpel tunnel, benjam[place] cataracts , cystocele and rectocele reapair, rt lung lobectomy lower lobe, arthroscopy surgery left hand Past Anesthesia/Blood Transfusion Reactions: No Reported Reaction Past Psychological History: Depression Smoking Status: Former smoker - Past Family History Mother Family Medical History: Pulmonary Embolus General Exam Limitations: no limitations General appearance: alert, in no apparent distress Head exam: Present: atraumatic, normocephalic, normal inspection Eye exam: Present: normal appearance, PERRL, EOMI. Absent: scleral icterus, conjunctival injection, periorbital swelling ENT exam: Present: normal exam, mucous membranes moist Neck exam: Present: normal inspection. Absent: tenderness, meningismus, lymphadenopathy Respiratory exam: Present: normal lung sounds bilaterally. Absent: respiratory distress, wheezes, rales, rhonchi, stridor Cardiovascular Exam: Present: regular rate, normal rhythm, normal heart sounds. Absent: systolic murmur, diastolic murmur, rubs, gallop, clicks GI/Abdominal exam: Present: soft, normal bowel sounds. Absent: distended, tenderness, guarding, rebound, rigid Extremities exam: Present: normal inspection, full ROM, normal capillary refill. Absent: tenderness, pedal edema, joint swelling, calf tenderness Back exam: Present: normal inspection Neurological exam: Present: alert, oriented X3, CN II-XII intact Psychiatric exam: Present: normal affect, normal mood Skin exam: Present: warm, dry, intact, normal color. Absent: rash Course Vital Signs 04/06/19 04/06/19 04/06/19 17:26 17:53 18:38 Temperature 98.2 F Pulse Rate 74 84 78 Respiratory 18 18 18 Rate Blood Pressure 201/96 181/75 183/78 O2 Sat by Pulse 99 100 98 Oximetry 04/06/19 04/06/19 19:18 20:09 Temperature Pulse Rate 80 78 Respiratory 18 18 Rate Blood Pressure 155/87 145/76 O2 Sat by Pulse 100 98 Oximetry Medical Decision Making - Medical Decision Making Upon arrival the patient is placed into room 5. A thorough history and physical exam was performed. Peripheral IV was established by EMS. They did not provide her with any medications for her symptoms. we did obtain vital signs which demonstrated the patient patient to be hypertensive with a blood pressure of 201/96. Did recommend laboratory studies and a CT of the patient's brain. CBC is unremarkable. CMP shows a creatinine of 0.5 which is at the patient's baseline. Glucose 119. Patient is sent over for a CT of her brain which demonstrates mild atrophy with no acute intracranial normality. The patient was given 10 mg of Reglan and 25 mg of Benadryl for her headache. She is reevaluated and states that her headache has improved from 9 out of 10 to 3 out of 10. I did offer her further treatment with Toradol. I discussed diagnosis, differential and treatment options. The patient then reports to complete resolution of her headache without nausea. The patient feels comfortable going home at this time. I did inform her that her headache be secondary to her high blood pressure. We did repeat vital the patient and blood pressures have improved to 145/76. I informed the patient that she should keep a blood pressure log at home. She should resume her blood pressure medication at half dose. She needs to call Dr. Sanz's office on Monday in follow-up for reevaluation. If she has any new or worsening symptoms she should return to the emergency room. The patient understood this. Family at bedside is in agreement to the treatment plan. The patient was discharged home in stable condition - Lab Data Result diagrams: 04/06/19 18:00 04/06/19 18:00 Lab Results 04/06/19 04/06/19 Range/Units 18:00 18:00 WBC 5.9 (3.8-10.6) k/uL RBC 4.07 (3.80-5.40) m/uL Hgb 12.6 (11.4-16.0) gm/dL Hct 36.8 (34.0-46.0) % MCV 90.4 (80.0-100.0) fL MCH 31.1 (25.0-35.0) pg MCHC 34.4 (31.0-37.0) g/dL RDW 13.6 (11.5-15.5) % Plt Count 194 (150-450) k/uL Neutrophils % 77 % Lymphocytes % 14 % Monocytes % 6 % Eosinophils % 1 % Basophils % 0 % Neutrophils # 4.6 (1.3-7.7) k/uL Lymphocytes # 0.8 L (1.0-4.8) k/uL Monocytes # 0.4 (0-1.0) k/uL Eosinophils # 0.0 (0-0.7) k/uL Basophils # 0.0 (0-0.2) k/uL Sodium 139 (137-145) mmol/L Potassium 3.7 (3.5-5.1) mmol/L Chloride 102 (98-107) mmol/L Carbon Dioxide 32 H (22-30) mmol/L Anion Gap 5 mmol/L BUN 17 (7-17) mg/dL Creatinine 0.51 L (0.52-1.04) mg/dL Est GFR (CKD-EPI)AfAm >90 (>60 ml/min/1.73 sqM) Est GFR (CKD-EPI)NonAf >90 (>60 ml/min/1.73 sqM) Glucose 119 H (74-99) mg/dL Calcium 9.4 (8.4-10.2) mg/dL Total Bilirubin 1.3 (0.2-1.3) mg/dL AST 24 (14-36) U/L ALT 19 (4-34) U/L Alkaline Phosphatase 74 (38-126) U/L Total Protein 6.6 (6.3-8.2) g/dL Albumin 4.0 (3.5-5.0) g/dL TSH 0.642 (0.465-4.680) mIU/L - EKG Data EKG Comments: EKG demonstrates a normal sinus rhythm with a ventricular rate of 87. MD interval 136. QRS E4. QTC of 428. No acute ST segment elevations or depressions concerning for ischemic changes Disposition Clinical Impression: Headache, Accelerated hypertension Disposition: HOME SELF-CARE Condition: Stable Instructions (If sedation given, give patient instructions): Acute Headache (ED) Additional Instructions: Please follow-up with Dr. Sanz in office. Call Monday for an appointment. I do recommend that you restart your blood pressure medication at half dose. Return to emergency room for any new or worsening symptoms Is patient prescribed a controlled substance at d/c from ED?: No Referrals: John Sanz MD [Primary Care Provider] - 1-2 days Time of Disposition: 19:35
[2019-04-06 20:15] VITALS: BP 145/76; PULSE 78
== END 2019-04-06 20:08 | disposition home or self-care (01) ==
LOC: EC 17:15
DX: I10 Essential (primary) hypertension (principal); R51 Headache; G31.9 Degenerative disease of nervous system, unspecified; J44.9 Chronic obstructive pulmonary disease, unspecified; K21.9 Gastro-esophageal reflux disease without esophagitis; E78.5 Hyperlipidemia, unspecified; Z79.82 Long term (current) use of aspirin; Z79.899 Other long term (current) drug therapy; Z88.1 Allergy status to other antibiotic agents; Z88.2 Allergy status to sulfonamides; Z87.891 Personal history of nicotine dependence
CPT/HCPCS: 36415; 93005; 80053; 84443; 85025; 70450; 99285; 96374; 96375 ×2; J1200; J2765; J1885

== ENCOUNTER 2023-02-15 14:44 | Inpatient (IN) | payer MEDICARE ==
[2023-02-15 14:49] LABS: Glucose,Whole Blood 120 mg/dL (70-110)
[2023-02-15] MEDS ORDERED: Alteplase PER PHARMACY Stroke 1 EACH MISC MISCELLANE PRN (14:57)
--- NOTE | 2023-02-15 15:03 | CT ---
EXAMINATION TYPE: CT brain wo con for TPA DATE OF EXAM: 02/15/2023 COMPARISON: 04/06/2019 HISTORY: Neuro deficit, acute, stroke suspected Unenhanced CT of the brain was performed. The ventricles, basal cisterns and sulci overlying the cerebral convexities demonstrate mild enlargem ent. There is no evidence for intracranial hemorrhage or sulcal effacement. There is decreased attenuation about the periventricular white matter and deep white matter of both c erebral hemispheres, compatible with chronic small vessel ischemia. Differential diagnosis does inclu de demyelination. No mass effects are seen.No midline shift. Osseous calvarium is intact. If symptoms persist consider MRI. IMPRESSION: 1. Age related atrophic and chronic small vessel ischemic change without acute intracranial process s een at this time.
[2023-02-15] MEDS ORDERED: ALTEPLASE IV STA ×2 (15:05)
[2023-02-15] MEDS ORDERED: [UNRECOGNIZED DRUG - OTHER] IV STA (15:05)
--- NOTE | 2023-02-15 15:19 | CT ---
EXAMINATION TYPE: CT angio head neck DATE OF EXAM: 02/15/2023 COMPARISON: None HISTORY: Code stroke neuro deficits CT DLP: 279.6 mGycm CONTRAST: Performed with IV Contrast, patient injected with 65 mL of Isovue 370. Combination Contrast CTA cervical carotids and [place] CTA cervical carotids with 3-D recons truction Contrast CTA of the cervical carotids was performed 3-D reconstruction imaging obtained at a separate workstation. Right carotid system: Mild plaque is seen of the right common carotid artery. There is mild plaque a lso noted at the carotid bulb and proximal ICA. No significant diameter reduction. ECA is patent. Right vertebral artery appears unremarkable. Left carotid system: Mild plaque is seen of the left common carotid artery. There is mild plaque als o noted at the carotid bulb and proximal ICA. No significant diameter reduction. ECA is patent. Lef t vertebral artery appears unremarkable. Right parotid nodule measures 1.2 cm. Left thyroid nodule measures 2.6 cm. IMPRESSION: 1. No significant diameter reduction to account for the patient's symptoms. CTA [place] with 3-D reconstruction Contrast CTA of the [place] was performed 3-D reconstruction imaging obtained at a separate workstation. Vertebrobasilar system as well as intracranial portions of the internal carotid arteries and their ma khadra tributaries are patent. I do not see evidence for sizable aneurysm or vascular malformation. Pl ease note MRI provides greater sensitivity and specificity. Visualized brain appears grossly unremar kable. IMPRESSION: 1. No significant abnormality. NASCET criteria was used in interpretation of this exam?
--- NOTE | 2023-02-15 15:28 | ED ---
Neuro HPI - General Stated Complaint: Poss Stroke Time Seen by Provider: 02/15/23 14:45 - History of Present Illness Is the patient presenting with stroke symptoms?: Yes Last Known Well Date: 02/15/23 Last Known Well Time: 14:20 Initial Comments: 82-year-old female with past medical history of lung cancer hypertension, hyperlipidemia who presents to emergency department with altered mental status. Patient had an appointment at the cardiology office this afternoon. It is rep orted from EMS that she checked in and had her appointment without any abnormalities. The patient was attempting to check out when she had sudden onset of altered mental status at 1420. They states that she was having difficulty writing out her check and she was not answering any questions appropr iately. I did speak with the patient's stepdaughter who does present to bedside. She is listed as the next of kin. She states that she is normally very alert and oriented without any speech deficits. No history of strokes. She does not take any blood thinners. She has not had any surgeries within the past 3 months. Patient cannot provide much history at all. She can not tell me her name. She won't follow commands. She does wear oxygen. Oxygen saturations were normal however t cardiology office did attempt to place the patient on some oxygen to see if it would help her symptoms. It did not and therefore patient transferred to us immediately after onset of symptoms. - Related Data Home Medications: Home Medications Medication Instructions Recorded Confirmed Albuterol Nebulized [Ventolin 2.5 mg INHALATION RT-QID PRN 06/10/16 02/15/23 Nebulized] Calcium Carbonate/Vitamin D3 1 tab PO DAILY 06/10/16 02/15/23 [Calcium 500-Vit D3 600 Tablet] Famotidine [Pepcid] 20 mg PO DAILY 06/10/16 02/15/23 Fluticasone Propion/Salmeterol 1 puff INHALATION RT-BID 06/10/16 02/15/23 [Advair 500-50 Diskus] L.acidoph,Paracasei, B.lactis 1 cap PO DAILY 06/10/16 02/15/23 [Probiotic] Lansoprazole [Prevacid] 15 mg PO DAILY 06/10/16 02/15/23 Multivitamins, Thera [Multivitamin] 1 tab PO DAILY 06/10/16 02/15/23 Albuterol Sulfate [Proair Hfa] 2 puff INHALATION RT-QID PRN 09/22/16 02/15/23 Metoprolol Tartrate [Lopressor] 25 mg PO BID 02/15/23 02/15/23 Allergies/Adverse Reactions: Allergies Allergy/AdvReac Type Severity Reaction Status Date / Time cefaclor [From Ceclor] Allergy Anaphylaxis Verified 02/15/23 15:39 Sulfa (Sulfonamide Allergy hives, Verified 02/15/23 15:39 Antibiotics) throat swelling Review of Systems ROS Statement: Those systems with pertinent positive or pertinent negative responses have been documented in the HPI. ROS Other: All systems not noted in ROS Statement are negative. General Exam Limitations: altered mental status General appearance: alert, anxious Head exam: Present: atraumatic, normocephalic, normal inspection Eye exam: Present: normal appearance, PERRL, EOMI. Absent: scleral icterus, conjunctival injection, periorbital swelling ENT exam: Present: normal exam, mucous membranes moist Neck exam: Present: normal inspection. Absent: tenderness, meningismus, lymphadenopathy Respiratory exam: Present: normal lung sounds bilaterally. Absent: respiratory distress, wheezes, rales, rhonchi, stridor Cardiovascular Exam: Present: regular rate, normal rhythm, normal heart sounds. Absent: systolic murmur, diastolic murmur, rubs, gallop, clicks Extremities exam: Present: normal inspection, full ROM, normal capillary refill, other (Equal strength in all extremities). Absent: tenderness, pedal edema, joint swelling, calf tenderness Neurological exam: Present: alert, other (Expressive aphasia. Patient cannot tell me her name. She does not know her date. She does not follow comma nds) Psychiatric exam: Present: anxious Skin exam: Present: warm, dry, intact, normal color. Absent: rash Stroke MDM - Lab Data Result diagrams: 02/15/23 14:49 02/15/23 14:49 Lab Results 02/15/23 02/15/23 02/15/23 Range/Units 14:47 14:49 14:49 WBC 5.9 (3.8-10.6) k/uL RBC 4.28 (3.80-5.40) m/uL Hgb 13.0 (11.4-16.0) gm/dL Hct 38.7 (34.0-46.0) % MCV 90.5 (80.0-100.0) fL MCH 30.4 (25.0-35.0) pg MCHC 33.6 (31.0-37.0) g/dL RDW 13.5 (11.5-15.5) % Plt Count 163 (150-450) k/uL MPV 7.8 Neutrophils % 63 % Lymphocytes % 27 % Monocytes % 5 % Eosinophils % 2 % Basophils % 0 % Neutrophils # 3.8 (1.3-7.7) k/uL Lymphocytes # 1.6 (1.0-4.8) k/uL Monocytes # 0.3 (0-1.0) k/uL Eosinophils # 0.1 (0-0.7) k/uL Basophils # 0.0 (0-0.2) k/uL PT 10.9 (10.0-12.5) sec INR 1.0 (<1.2) APTT 25.2 (22.0-30.0) sec Sodium (137-145) mmol/L Potassium (3.5-5.1) mmol/L Chloride (98-107) mmol/L Carbon Dioxide (22-30) mmol/L Anion Gap mmol/L BUN (7-17) mg/dL Creatinine (0.52-1.04) mg/dL Est GFR (CKD-EPI)AfAm (>60 ml/min/1.73 sqM) Est GFR (CKD-EPI)NonAf (>60 ml/min/1.73 sqM) Glucose (74-99) mg/dL POC Glucose (mg/dL) 120 H (70-110) mg/dL POC Glu Family Practice Doctor ID Leonor Chow Calcium (8.4-10.2) mg/dL Total Bilirubin (0.2-1.3) mg/dL AST (14-36) U/L ALT (4-34) U/L Alkaline Phosphatase (38-126) U/L Creatine Kinase (30-135) U/L Troponin I (0.000-0.034) ng/mL Total Protein (6.3-8.2) g/dL Albumin (3.5-5.0) g/dL 02/15/23 02/15/23 Range/Units 14:49 14:49 WBC (3.8-10.6) k/uL RBC (3.80-5.40) m/uL Hgb (11.4-16.0) gm/dL Hct (34.0-46.0) % MCV (80.0-100.0) fL MCH (25.0-35.0) pg MCHC (31.0-37.0) g/dL RDW (11.5-15.5) % Plt Count (150-450) k/uL MPV Neutrophils % % Lymphocytes % % Monocytes % % Eosinophils % % Basophils % % Neutrophils # (1.3-7.7) k/uL Lymphocytes # (1.0-4.8) k/uL Monocytes # (0-1.0) k/uL Eosinophils # (0-0.7) k/uL Basophils # (0-0.2) k/uL PT (10.0-12.5) sec INR (<1.2) APTT (22.0-30.0) sec Sodium 132 L (137-145) mmol/L Potassium 4.5 (3.5-5.1) mmol/L Chloride 97 L (98-107) mmol/L Carbon Dioxide 27 (22-30) mmol/L Anion Gap 8 mmol/L BUN 19 H (7-17) mg/dL Creatinine 0.56 (0.52-1.04) mg/dL Est GFR (CKD-EPI)AfAm >90 (>60 ml/min/1.73 sqM) Est GFR (CKD-EPI)NonAf 86 (>60 ml/min/1.73 sqM) Glucose 121 H (74-99) mg/dL POC Glucose (mg/dL) (70-110) mg/dL POC Glu Family Practice Doctor ID Calcium 9.0 (8.4-10.2) mg/dL Total Bilirubin 1.0 (0.2-1.3) mg/dL AST 25 (14-36) U/L ALT 16 (4-34) U/L Alkaline Phosphatase 67 (38-126) U/L Creatine Kinase 52 (30-135) U/L Troponin I <0.012 (0.000-0.034) ng/mL Total Protein 5.7 L (6.3-8.2) g/dL Albumin 3.5 (3.5-5.0) g/dL - Medical Decision Making Was pt. sent in by a medical professional or institution (, [facility], REHABILITATION CENTER MANAGER, urgent care, hospital, or custodial...) When possible be specific @ -Patient was sent from the cardiology office Did you speak to anyone other than the patient for history (EMS, parent, family, police, friend...)? What history was obtained from this source @ -I spoke with EMS in regards to the history. I also obtained some history from the stepdaughter who states that she is normally alert and oriented and conversive. She does wear hearing aids Did you review nursing and triage notes (agree or disagree)? Why? @ -I reviewed and agree with nursing and triage notes Were old charts reviewed (outside hosp., previous admission, EMS record, old EKG, old radiological studies, urgent care reports/EKG's, custodial records)? Report findings @ -I reviewed patient's previous record. She has no history of CVA. Not reportedly on any blood thinners Differential Diagnosis (chest pain, altered mental status, abdominal pain women, abdominal pain men, vaginal bleeding, weakness, fever, dyspnea, syncope, headache, dizziness, GI bleed, back pain, seizure, CVA, palpatations, mental health, musculoskeletal)? @ -Differential CVA Ischemic stroke, hemorrhagic stroke, brain tumor, atypical migraine, Wernicke's encephalopathy, seizure, multiple sclerosis, meningitis, encephalitis, hypoglycemia, Guillain-Carlson, electrolytes disturbance, myasthenia gravis.... This is not meant to be an all-inclusive list EKG interpreted by me (3pts min.). @ -Yes and demonstrates sinus rhythm with a rate of 73. MS interval 155. QRS 72. QTC of 406. No acute ST segment elevations or depressions X-rays interpreted by me (1pt min.). @ -Yes and demonstrates no acute process CT interpreted by me (1pt min.). @ -Yes and does not demonstrate acute intracranial process. CT angiography also does not demonstrate large vessel occlusion U/S interpreted by me (1pt. min.). @ -None done What testing was considered but not performed or refused? (CT, X-rays, U/S, labs)? Why? @ -None What meds were considered but not given or refused? Why? @ -None Did you discuss the management of the patient with other professionals (professionals i.e. Dr., PA, REHABILITATION CENTER MANAGER, lab, RT, psych nurse, social worker clinical, radio recorder, teacher, admissions officer, welfare case worker)? Give summary @ -I spoke with the neuro folding machine feeder team - Dr. Madrigal title i paraprofessional. Recommends TPA after blood pressure control Was smoking cessation discussed for >3mins.? @ -No Was critical care preformed (if so, how long)? @ -Yes, 35 minutes Were there social determinants of health that impacted care today? How? (Homelessness, low income, unemployed, alcoholism, drug addiction, transportation, low edu. Level, literacy, decrease access to med. care, alf, rehab)? @ -No Was there de-escalation of care discussed even if they declined (Discuss DNR or withdrawal of care, Hospice)? DNR status @ -No What co-morbidities impacted this encounter? (DM, HTN, Smoking, COPD, CAD, Cancer, CVA, ARF, Chemo, Hep., AIDS, mental health diagnosis, sleep apnea, morbid obesity)? @ -Lung cancer Was patient admitted / discharged? Hospital course, mention meds given and route, prescriptions, significant lab abnormalities, going to OR and other pertinent info. @ -Upon arrival patient was probably evaluated in the hallway. She cannot an swer any questions appropriately. She does not follow any commands. NH is assessed and is 5. Accu-Chek is obtained and is 120. IV is established. Patient is taken for CT. Joshua does present to the hospital and I do speak with her in regards to the patient's symptoms. She is agreeable that the patient is confused with difficulty speaking. She denies that she is on any blood thinners. She has never had a hemorrhagic stroke. She has not had any surgeries within the past [address] is performed and demonstrates no acute intracranial process. We did activate a code alteplase and therefore she is evaluated by the stroke team over the stroke robot. Patient does have elevated blood pressure and therefore she is placed on Cardene. After evaluation they do recommend TPA. This is discussed with the patient stepdaughter as patient does not have capacity. Stepdakimberly does agree to TPA after the risks are discussed with her. She signs consent. TPA bolus is administered after blood pressure is less than 180. Discussed that the patient will go to our ICU at this time. I spoke with Dr. Sanz who will see the patient tonight. Also spoke with Dr. Hunt who does present to the emergency department to evaluate the patient. Patient is accepted into the ICU in stable condition with a guarded prognosis Undiagnosed new problem with uncertain prognosis? @ -Yes Drug Therapy requiring intensive monitoring for toxicity (Heparin, Nitro, Insulin, Cardizem)? @ -yes, alteplase Were any procedures done? @ -No Diagnosis/symptom? @ -Acute expressive aphasia, acute encephalopathy, suspected CVA status post TPA Acute, or Chronic, or Acute on Chronic? @ -acute Uncomplicated (without systemic symptoms) or Complicated (systemic symptoms)? @ -Complicated Side effects of treatment? @ -intracranial hemorrhage, Exacerbation, Progression, or Severe Exacerbation? @ -No Poses a threat to life or bodily function? How? (Chest pain, [place], GA, pneumonia, PE, COPD, DKA, ARF, appy, cholecystitis, CVA, Diverticulitis, Homicidal, Suicidal, threat to staff... and all critical care pts) @ -yes patient presents with concerns for stroke Past Medical History Past Medical History: Coronary Artery Disease (CAD), Cancer, COPD, GERD/Reflux, Hyperlipidemia, Hypertension, Osteoarthritis (OA), Pneumonia Additional Past Medical History / Comment(s): vertigo, hx lung cancer, SOB, tachycardia, oxygen 2L at night and PRN, hiatal hernia, hx ulcer, History of Any Multi-Drug Resistant Organisms: None Reported Past Surgical History: Appendectomy, Bladder Surgery, Cholecystectomy, Hernia Repair, Orthopedic Surgery, Tubal Ligation Additional Past Surgical History / Comment(s): bladder suspension, parathyroidectomy, rt carpel tunnel, benjamín cataracts , cystocele and rectocele reapair, rt lung lobectomy lower lobe, arthroscopy surgery left hand Past Anesthesia/Blood Transfusion Reactions: No Reported Reaction Past Psychological History: Depression - Past Family History Mother Family Medical History: Pulmonary Embolus Course Vital Signs 02/15/23 02/15/23 02/15/23 14:45 15:10 15:15 Temperature Pulse Rate 77 62 66 Respiratory 18 18 16 Rate Blood Pressure 179/102 188/87 192/85 O2 Sat by Pulse 96 Oximetry 02/15/23 02/15/23 02/15/23 15:20 15:25 15:30 Temperature Pulse Rate 68 76 71 Respiratory 12 20 24 Rate Blood Pressure 194/84 167/73 167/73 O2 Sat by Pulse Oximetry 02/15/23 02/15/23 02/15/23 15:35 15:40 15:45 Temperature Pulse Rate 73 65 71 Respiratory 18 15 12 Rate Blood Pressure 134/73 134/73 156/80 O2 Sat by Pulse 98 98 97 Oximetry 02/15/23 02/15/23 02/15/23 15:50 15:55 16:00 Temperature Pulse Rate 70 74 81 Respiratory 17 15 20 Rate Blood Pressure 171/83 148/77 164/105 O2 Sat by Pulse 97 98 96 Oximetry 02/15/23 02/15/23 02/15/23 16:05 16:10 16:15 Temperature Pulse Rate 76 73 73 Respiratory 17 14 19 Rate Blood Pressure 148/89 145/79 124/65 O2 Sat by Pulse 96 93 L 97 Oximetry 02/15/23 02/15/23 02/15/23 16:20 16:25 16:30 Temperature Pulse Rate 79 79 76 Respiratory 17 18 16 Rate Blood Pressure 131/85 142/72 135/80 O2 Sat by Pulse 96 98 98 Oximetry 02/15/23 16:45 Temperature 98.5 F Pulse Rate 74 Respiratory 12 Rate Blood Pressure 137/90 O2 Sat by Pulse 92 L Oximetry - Reevaluation(s) Reevaluation #1: Neurointensivist does recommend TPA, will await CT scans and re-evaluate 02/15/23 15:03 Reevaluation #2: Patient evaluated by stroke team via stroke robot - CT negative. CTA negative. Recommend TPA due to symptoms. TPA bolus given at this time. Delay due to high blood pressure with need for cardene gtt 02/15/23 15:23 Disposition Clinical Impression: Cerebrovascular accident (CVA), Expressive aphasia Disposition: ADMITTED IP TO THIS [facility] Condition: Serious Is patient prescribed a controlled substance at d/c from ED?: No Time of Disposition: 15:56 Decision to Admit Reason: Admit from EC Decision Date: 02/15/23 Decision Time: 15:56
[2023-02-15] MEDS ORDERED: niCARdipine 20 MG in SODIUM CHLORIDE 0.9% 192 ML IV SCH (15:30)
[2023-02-15 15:35] LABS: Basophils % (A) 0 %; Eosinophils # (A) 0.1 k/uL (0-0.7); Eosinophils % (A) 2 %; HCT 38.7 % (34.0-46.0); Lymphocytes # (A) 1.6 k/uL (1.0-4.8); Lymphocytes % (A) 27 %; MCH 30.4 pg (25.0-35.0); MCHC 33.6 g/dL (31.0-37.0); MCV 90.5 fL (80.0-100.0); Mean Platelet Volume 7.8; Monocytes # (A) 0.3 k/uL (0-1.0); Monocytes % (A) 5 %; Neutrophils # (A) 3.8 k/uL (1.3-7.7); Neutrophils % (A) 63 %; Platelet Count 163 k/uL (150-450); RBC 4.28 m/uL (3.80-5.40); RDW 13.5 % (11.5-15.5); WBC 5.9 k/uL (3.8-10.6)
[2023-02-15 15:42] LABS: Partial Thromboplastin Time 25.2 sec (22.0-30.0); Prothrombin Time 10.9 sec (10.0-12.5)
[2023-02-15 15:48] LABS: ALT 16 U/L (4-34); AST 25 U/L (14-36); African American GFR (CKD) >90 (>60 ml/min/1.73 sqM); Albumin 3.5 g/dL (3.5-5.0); Alkaline Phosphatase 67 U/L (38-126); Anion Gap 8 mmol/L; Blood Urea Nitrogen 19 mg/dL (7-17); Carbon Dioxide 27 mmol/L (22-30); Chloride 97 mmol/L (98-107); Creatine Kinase 52 U/L (30-135); Glucose 121 mg/dL (74-99); Non-African American GFR(CKD) 86 (>60 ml/min/1.73 sqM); Potassium 4.5 mmol/L (3.5-5.1); Sodium 132 mmol/L (137-145); Total Protein 5.7 g/dL (6.3-8.2)
[2023-02-15] MEDS ORDERED: SODIUM CHLORIDE 0.9% 50 ML MINI-BAG IV ONE ×2 (15:57→16:05)
[2023-02-15] MEDS ORDERED: ALBUTEROL NEBULIZED 2.5 MG/3 ML INHALATION PRN (16:28)
[2023-02-15 17:04] LABS: Glucose,Whole Blood 140 mg/dL (70-110)
--- NOTE | 2023-02-15 17:04 | XR ---
EXAMINATION TYPE: XR chest 1V DATE OF EXAM: 02/15/2023 CLINICAL HISTORY: COPD TECHNIQUE: Single frontal view of the chest is obtained. COMPARISON: Prior chest x-ray July 17, 2016 FINDINGS: Background chronic emphysematous changes redemonstrated. There is no focal air space opaci ty, pleural effusion, or pneumothorax seen. The cardiac silhouette size is stable and within normal limits. The osseous structures are intact. IMPRESSION: Chronic emphysematous change without acute pulmonary process.
--- NOTE | 2023-02-15 17:16 | P.CNPUL ---
History of Present Illness Consult date: 02/15/23 Chief complaint: Aphasia, altered mentation History of present illness: There is an 82-year-old female patient was brought into the emergency department because of expressive aphasia and confusion. The patient wasn't a good state and she was at the meat service team member's office for routine office visit when she was found to be normal and subsequent as she was being checked out, the patient became altered and she was unable to, with the proper words and she was found to be aphasic. In the emergency department, initial blood pressure was quite diana vated and she had a BP of 179/102 and came up to 192/85. Lab work was done and her white cell count was at 5.9, hemoglobin was 13, electrolytes are all within normal limits. She underwent a CAT scan of the brain that was negative and a CT angiogram was also negative. An ice score was 5. She was given thrombolytics per protocol. At this point in time, the patient is on a Cardene drip for blood pressure control. This is running at 5 mg an hour. She is being monitored closely following her thrombolytic administration and she will be coming to the intensive care unit. She remains hemodynamically stable. No headache. No seizure activity. No focal neurological deficit at this point in time. In terms of her history, the patient has previous history of hypertension, hyperlipidemia and previous history of lung cancer followed up with Dr. Christopher. Chest x-ray has not been done during this current admission. Denies having any chest pain or shortness of breath. No palpitations. Cardiac rhythm is currently sinus. She also has history of severe COPD with chronic hypoxic respiratory failure. She has been essentially stable regarding her COPD. She has previous history of a right lower lobectomy for lung cancer. Review of Systems ROS unobtainable: due to mental status All systems: negative Constitutional: Reports as per HPI Eyes: denies as per HPI, denies blurred vision, denies bulging eye, denies decreased vision, denies diplopia, denies discharge, denies dry eye, denies irritation, denies itching, denies pain, denies photophobia, denies loss of peripheral vision, denies loss of vision, denies tunnel vision/blind spots Ears: deny: decreased hearing, ear discharge, earache, tinnitus Ears, nose, mouth and throat: Reports as per HPI Breasts: absent: as per HPI, change in shape, gynecomastia, masses, nipple discharge, pain, skin changes, swelling Cardiovascular: Reports as per HPI Respiratory: Reports as per HPI Gastrointestinal: Reports as per HPI Genitourinary: Reports as per HPI Menstruation: Reports as per HPI Musculoskeletal: Reports as per HPI Musculoskeletal: absent: ankle pain, ankle stiffness, ankle swelling Integumentary: Reports as per HPI Neurological: Reports aphasia, Reports confusion Psychiatric: Reports as per HPI Endocrine: Reports as per HPI Hematologic/Lymphatic: Reports as per HPI Allergic/Immunologic: Reports as per HPI Past Medical History Past Medical History: Coronary Artery Disease (CAD), Cancer, COPD, GERD/Reflux, Hyperlipidemia, Hypertension, Osteoarthritis (OA), Pneumonia Additional Past Medical History / Comment(s): vertigo, hx lung cancer, SOB, t achycardia, oxygen 2L at night and PRN, hiatal hernia, hx ulcer, History of Any Multi-Drug Resistant Organisms: None Reported Past Surgical History: Appendectomy, Bladder Surgery, Cholecystectomy, Hernia Repair, Orthopedic Surgery, Tubal Ligation Additional Past Surgical History / Comment(s): bladder suspension, parathyroi dectomy, rt carpel tunnel, benjamín cataracts , cystocele and rectocele reapair, rt lung lobectomy lower lobe, arthroscopy surgery left hand Past Anesthesia/Blood Transfusion Reactions: No Reported Reaction Past Psychological History: Depression - Past Family History Mother Family Medical History: Pulmonary Embolus Medications and Allergies Home Medications Medication Instructions Recorded Confirmed Type Albuterol Nebulized [Ventolin 2.5 mg INHALATION RT-QID PRN 06/10/16 02/15/23 History Nebulized] Calcium Carbonate/Vitamin D3 1 tab PO DAILY 06/10/16 02/15/23 History [Calcium 500-Vit D3 600 Tablet] Famotidine [Pepcid] 20 mg PO DAILY 06/10/16 02/15/23 History Fluticasone Propion/Salmeterol 1 puff INHALATION RT-BID 06/10/16 02/15/23 History [Advair 500-50 Diskus] L.acidoph,Paracasei, B.lactis 1 cap PO DAILY 06/10/16 02/15/23 History [Probiotic] Lansoprazole [Prevacid] 15 mg PO DAILY 06/10/16 02/15/23 History Multivitamins, Thera [Multivitamin] 1 tab PO DAILY 06/10/16 02/15/23 History Albuterol Sulfate [Proair Hfa] 2 puff INHALATION RT-QID PRN 09/22/16 02/15/23 History Metoprolol Tartrate [Lopressor] 25 mg PO BID 02/15/23 02/15/23 History Allergies Allergy/AdvReac Type Severity Reaction Status Date / Time cefaclor [From [facility]] Allergy Anaphylaxis Verified 02/15/23 15:39 Sulfa (Sulfonamide Allergy hives, Verified 02/15/23 15:39 Antibiotics) throat swelling Physical Exam Vitals: Vital Signs Pulse Resp BP Pulse Ox 02/15/23 16:10 73 14 145/79 93 L 02/15/23 16:05 76 17 148/89 96 02/15/23 16:00 81 20 164/105 96 02/15/23 15:55 74 15 148/77 98 02/15/23 15:50 70 17 171/83 97 02/15/23 15:45 71 12 156/80 97 02/15/23 15:40 65 15 134/73 98 02/15/23 15:35 73 18 134/73 98 02/15/23 15:30 71 24 167/73 02/15/23 15:25 76 20 167/73 02/15/23 15:20 68 12 194/84 02/15/23 15:15 66 16 192/85 02/15/23 15:10 62 18 188/87 02/15/23 14:45 77 18 179/102 96 Intake and Output 02/15/23 02/15/23 02/15/23 06:59 14:59 22:59 Intake Total 52.500 Balance 52.500 Intake: Intake, IV Titration 52.500 Amount niCARdipine 20 mg In 52.500 Sodium Chloride 0.9% 192 ml @ 5 MG/HR 50 mls/hr IV .Q4H [facility] Rx#:[id number] Other: Weight 47.945 kg 48 kg General appearance: alert, in no apparent distress, and the patient is currently on the rate is about to nasal cannula with pulse ox of 93% Head exam: Present: atraumatic, normocephalic, normal inspection Eye exam: Present: normal appearance, PERRL, EOMI. Absent: scleral icterus, conjunctival injection, periorbital swelling ENT exam: Present: normal exam, mucous membranes moist Neck exam: Present: normal inspection. Absent: tenderness, meningismus, l ymphadenopathy Respiratory exam: Absent: respiratory distress, wheezes, rales, rhonchi, stridor, she has diminished breath sounds bilaterally Cardiovascular Exam: Present: regular rate, normal rhythm, normal heart sounds. Absent: systolic murmur, diastolic murmur, rubs, gallop, clicks GI/Abdominal exam: Present: soft, normal bowel sounds. Absent: distended, tenderness, guarding, rebound, rigid Extremities exam: Present: normal inspection, full ROM, normal capillary refill. Absent: tenderness, pedal edema, joint swelling, calf tenderness Back exam: Present: normal inspection Neurological exam: Present: Patient has no focal neurological deficits. No cranial nerves deficits. The patient has expressive aphasia. Psychiatric exam: Present: normal affect, normal mood Skin exam: Present: warm, dry, intact, normal color. Absent: rash Results - Laboratory Findings CBC and BMP: 02/15/23 14:49 02/15/23 14:49 PT/INR, D-dimer PT 10.9 sec (10.0-12.5) 02/15/23 14:49 INR 1.0 (<1.2) 02/15/23 14:49 Abnormal lab findings: Abnormal Labs 02/15/23 02/15/23 14:47 14:49 Sodium 132 L Chloride 97 L BUN 19 H Glucose 121 H POC Glucose (mg/dL) 120 H Total Protein 5.7 L Assessment and Plan Plan: Altered mental status with expressive aphasia, on that investigation. CAT scan of the brain was negative. CT angiogram was also negative. Rule out acute hypertensive emergency as the patient's blood pressure was quite elevated at time of admission. 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 Chronic hypoxic respiratory failure Previous history of lung cancer with a previous right lower lobe resection Coronary artery disease Hypertension Hyperlipidemia Osteoarthritis History of gastric ulcer with hiatal hernia History of parathyroidectomy for parathyroid disease History of urinary incontinence status post bladder suspension and repair of a rectocele and cystocele Plan Admit the patient to the intensive care unit Continue the Cardene drip allowing systolic blood pressure to be around 160 and a diastolic pressure between 80 and 90 Neurologic consultation Frequent neuro checks Repeat another CAT scan within 24 hours post thrombolytic administration Neurologic consultation Echocardiogram Monitor cardiac rhythm Obtain a 12-lead EKG Resume all medications including her Advair that'll replaced with Symbicort during the current admission and uses Ventolin nevertheless she was on as-needed basis Restart metoprolol 25 mg by mouth twice a day We'll continue to follow
[2023-02-15] MEDS ORDERED: ONDANSETRON 4 MG/2 ML VIAL IVP PRN (18:04)
[2023-02-15] MEDS ORDERED: SODIUM CHLORIDE 0.9% 500 ML 500 ML IV ONE (18:05)
--- NOTE | 2023-02-15 18:35 | CT ---
EXAMINATION TYPE: CT brain wo con DATE OF EXAM: 02/15/2023 HISTORY: headache post TPA CT DLP: 1123.4. mGycm. Automated Exposure Control for Dose Reduction was Utilized. TECHNIQUE: CT scan of the head is performed without contrast. COMPARISON: CT brain earlier today. FINDINGS: New areas of acute intracranial hemorrhage are present. There is right-sided extra-axial presumed acute subdural hemorrhage measuring up to 10 mm in thickness coronal image 44 right parieta l lobe. Additional areas of acute intracranial hemorrhage are seen bilaterally including multifocal intrapare nchymal hemorrhages. For example is 1.6 cm left parietal acute hemorrhage axial image 34. There are a reas of acute subarachnoid hemorrhage bilaterally including bilateral cerebellar hemispheres. New slight midline shift measuring 3 to 4 mm axial images 32 to the left. No hydrocephalus. Bilateral aphakia redemonstrated. Paranasal sinuses remain clear. IMPRESSION: There are bilateral new areas of acute intracranial hemorrhage as detailed above with new subtle left-sided midline shift. Critical results communicated to patient's ICU nurse via telephone at time of dictation
[2023-02-15] MEDS ORDERED: AMINOCAPROIC ACID 500 MG TAB PO STA (19:10)
[2023-02-15] MEDS: CLEVIDIPINE BUTYRATE 25 MG in EMPTY BAG 1 BAG IV SCH ×2 (19:20→21:26)
--- NOTE | 2023-02-15 19:42 | P.HPIM ---
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 When she was checking out of the office she became a phasic and was unable to complete writing the check for payment to the office. She was transferred from the office and evaluated in our local emergency room. Neuro wellness program manager has stated that TPA would be appropriate and the patient was given this per protocol. The patient was then transferred to the ICU after stabilization but developed significant headache with nausea. The patient was then rescanned and found to have acute intracranial hemorrhage. The patient is now undergoing transfer to tertiary care center. Review of Systems ROS unobtainable: due to mental status Past Medical History Past Medical History: Coronary Artery Disease (CAD), Cancer, COPD, GERD/Reflux, Hyperlipidemia, Hypertension, Osteoarthritis (OA), Pneumonia Additional Past Medical History / Comment(s): vertigo, hx lung cancer, SOB, tachycardia, oxygen 2L at night and PRN, hiatal hernia, hx ulcer, History of Any Multi-Drug Resistant Organisms: None Reported Past Surgical History: Appendectomy, Bladder Surgery, Cholecystectomy, Hernia Repair, Orthopedic Surgery, Tubal Ligation Additional Past Surgical History / Comment(s): bladder suspension, parathyroidectomy, rt carpel tunnel, benjamín cataracts , cystocele and rectocele r eapair, rt lung lobectomy lower lobe, arthroscopy surgery left hand Past Anesthesia/Blood Transfusion Reactions: No Reported Reaction Past Psychological History: Depression - Past Family History Mother Family Medical History: Pulmonary Embolus Medications and Allergies Home Medications Medication Instructions Recorded Confirmed Type Albuterol Nebulized [Ventolin 2.5 mg INHALATION RT-QID PRN 06/10/16 02/15/23 History Nebulized] Calcium Carbonate/Vitamin D3 1 tab PO DAILY 06/10/16 02/15/23 History [Calcium 500-Vit D3 600 Tablet] Famotidine [Pepcid] 20 mg PO DAILY 06/10/16 02/15/23 History Fluticasone Propion/Salmeterol 1 puff INHALATION RT-BID 06/10/16 02/15/23 History [Advair 500-50 Diskus] L.acidoph,Paracasei, B.lactis 1 cap PO DAILY 06/10/16 02/15/23 History [Probiotic] Lansoprazole [Prevacid] 15 mg PO DAILY 06/10/16 02/15/23 History Multivitamins, Thera [Multivitamin] 1 tab PO DAILY 06/10/16 02/15/23 History Albuterol Sulfate [Proair Hfa] 2 puff INHALATION RT-QID PRN 09/22/16 02/15/23 History Metoprolol Tartrate [Lopressor] 25 mg PO BID 02/15/23 02/15/23 History Allergies Allergy/AdvReac Type Severity Reaction Status Date / Time [facility] Allergy Anaphylaxis Verified 02/15/23 15:39 Sulfa (Sulfonamide Allergy hives, Verified 02/15/23 15:39 Antibiotics) throat swelling Physical Exam Vitals: Vital Signs Temp Pulse Resp BP Pulse Ox 02/15/23 18:00 92 14 146/80 98 02/15/23 17:45 99 10 L 133/81 98 02/15/23 17:30 94 19 140/79 94 L 02/15/23 17:15 78 16 158/76 93 L 02/15/23 17:01 16 97 02/15/23 16:45 98.5 F 74 12 137/90 92 L 02/15/23 16:30 76 16 135/80 98 02/15/23 16:25 79 18 142/72 98 02/15/23 16:20 79 17 131/85 96 02/15/23 16:15 73 19 124/65 97 02/15/23 16:10 73 14 145/79 93 L 02/15/23 16:05 76 17 148/89 96 02/15/23 16:00 81 20 164/105 96 02/15/23 15:55 74 15 148/77 98 02/15/23 15:50 70 17 171/83 97 02/15/23 15:45 71 12 156/80 97 02/15/23 15:40 65 15 134/73 98 02/15/23 15:35 73 18 134/73 98 02/15/23 15:30 71 24 167/73 02/15/23 15:25 76 20 167/73 02/15/23 15:20 68 12 194/84 02/15/23 15:15 66 16 192/85 02/15/23 15:10 62 18 188/87 02/15/23 14:45 77 18 179/102 96 Intake and Output 02/15/23 02/15/23 02/15/23 06:59 14:59 22:59 Intake Total 91.500 Balance 91.500 Intake: IV 39 Alteplase 39 mg In Empty 39 Bag 1 bag @ 39 mls/hr IV ONCE STA Rx#:[id number] Intake, IV Titration 52.500 Amount niCARdipine 20 mg In 52.500 Sodium Chloride 0.9% 192 ml @ 5 MG/HR 50 mls/hr IV .Q4H [facility] Rx#:[id number] Other: Weight 47.945 kg 48 kg - Constitutional General appearance: average body habitus, no cooperative - Neck Neck: no lymphadenopathy - Respiratory Respiratory: bilateral: diminished - Cardiovascular Rhythm: regular Heart sounds: normal: S1, S2 Abnormal Heart Sounds: no S3 Gallop - Gastrointestinal General gastrointestinal: soft - Neurologic Neurologic: focal deficits - Psychiatric Psychiatric: no A&O x's 3 Results CBC & Chem 7: 02/15/23 14:49 02/15/23 14:49 Labs: Abnormal Lab Results - Last 24 Hours (Table) 02/15/23 02/15/23 02/15/23 Range/Units 14:47 14:49 17:03 Sodium 132 L (137-145) mmol/L Chloride 97 L (98-107) mmol/L BUN 19 H (7-17) mg/dL Glucose 121 H (74-99) mg/dL POC Glucose (mg/dL) 120 H 140 H (70-110) mg/dL Total Protein 5.7 L (6.3-8.2) g/dL Assessment and Plan (1) Expressive aphasia Current Visit: Yes Status: Acute Code(s): R47.01 - APHASIA SNOMED Code(s): 513911538 Plan: The plan is for the patient to be transferred given the intracranial hemorrhage. Neurology has assisted in finding a bed at [facility].
--- NOTE | 2023-02-15 19:46 | P.DS ---
Providers Date of admission: 02/15/23 15:57 Attending physician: John Sanz Consults: 02/15/23 16:00 Consult Physician Urgent Consulting Provider: Cristian Aguillon Consult Reason/Comments: cva s/p tpa Do you want consulting provider notified?: Yes 02/15/23 16:01 Consult Physician Urgent Consulting Provider: Erin Romo Consult Reason/Comments: acute cva s/p tpa Do you want consulting provider notified?: Already Contacted Primary care physician: John Sanz - Discharge Diagnosis(es) (1) Expressive aphasia Current Visit: Yes Status: Acute Hospital Course: This is a discharge summary an 82-year-old white female with known history of hypertension hyperlipidemia and history of lung cancer who was admitted after andrade ving significant altered mental status at 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 The patient ended up having TPA per stroke pork protocol after being a valid by the neuro toxicology supervisor. The patient was stabilized but then sent to the ICU where she had significant headache. CT scan of the head was repeated after evaluation by critical care and neurology which found to have acute intracranial hemorrhage after having TPA. The patient is not to be transferred to tertiary care center for continued care given the new finding. Neurology has assisted me in getting a bed at [facility]. Patient Condition at Discharge: Serious Plan - Discharge Summary New Discharge Prescriptions: Continue Multivitamins, Thera [Multivitamin (formulary)] 1 tab PO DAILY Calcium Carbonate/Vitamin D3 [Calcium 500-Vit D3 15 Mcg (600 Iu)] 1 tab PO DAILY Lansoprazole [Prevacid] 15 mg PO DAILY Famotidine [Pepcid] 20 mg PO DAILY Fluticasone Propion/Salmeterol [Advair 500-50 Diskus] 1 puff INHALATION RT- BID Albuterol Nebulized [Ventolin Nebulized] 2.5 mg INHALATION RT-QID PRN PRN Reason: Shortness Of Breath L.acidoph,Paracasei, B.lactis [Probiotic] 1 cap PO DAILY Albuterol Sulfate [Proair Hfa] 2 puff INHALATION RT-QID PRN PRN Reason: Shortness Of Breath Metoprolol Tartrate [Lopressor] 25 mg PO BID Discharge Medication List Albuterol Nebulized [Ventolin Nebulized] 2.5 mg INHALATION RT-QID PRN 06/10/16 [History] Calcium Carbonate/Vitamin D3 [Calcium 500-Vit D3 15 Mcg (600 Iu)] 1 tab PO DAILY 06/10/16 [History] Famotidine [Pepcid] 20 mg PO DAILY 06/10/16 [History] Fluticasone Propion/Salmeterol [Advair 500-50 Diskus] 1 puff INHALATION RT-BID 06/10/16 [History] L.acidoph,Paracasei, B.lactis [Probiotic] 1 cap PO DAILY 06/10/16 [History] Lansoprazole [Prevacid] 15 mg PO DAILY 06/10/16 [History] Multivitamins, Thera [Multivitamin (formulary)] 1 tab PO DAILY 06/10/16 [History] Albuterol Sulfate [Proair Hfa] 2 puff INHALATION RT-QID PRN 09/22/16 [History] Metoprolol Tartrate [Lopressor] 25 mg PO BID 02/15/23 [History] Follow up Appointment(s)/Referral(s): John Sanz MD [Primary Care Provider] - 1-2 days [facility]charge [facility]
[2023-02-15 20:14] LABS: HCT 38.6 % (34.0-46.0); HGB 13.4 gm/dL (11.4-16.0); MCH 31.4 pg (25.0-35.0); MCHC 34.8 g/dL (31.0-37.0); MCV 90.4 fL (80.0-100.0); Mean Platelet Volume 8.5; Platelet Count 184 k/uL (150-450); RBC 4.27 m/uL (3.80-5.40); RDW 13.1 % (11.5-15.5); WBC 8.1 k/uL (3.8-10.6)
[2023-02-15 20:26] LABS: Partial Thromboplastin Time 23.8 sec (22.0-30.0); Prothrombin Time 11.3 sec (10.0-12.5)
[2023-02-15] MEDS ORDERED: ATORVASTATIN 40 MG TAB PO SCH (21:00)
[2023-02-15] MEDS ORDERED: METOPROLOL TARTRATE 25 MG TAB PO SCH (21:00)
[2023-02-15] MEDS ORDERED: MANNITOL IV ONE (21:00)
[2023-02-15] MEDS ORDERED: SALINE IV ONE (21:00)
[2023-02-15] MEDS ORDERED: SODIUM CHLORIDE 3%(HYPERTONIC) 500 ML IV ONE (21:30)
[2023-02-15 21:35] VITALS: BP 120/58; PULSE 71; RESP 21; TEMP 98
[2023-02-16] MEDS ORDERED: FAMOTIDINE 20 MG TAB PO SCH (09:00)
--- NOTE | 2023-02-16 18:09 | P.PN ---
Progress Note - Text Progress Note Date: 02/15/23 This is an 82-year-old gentleman who presented emergency department on 02/15/2023 and she presented with altered mental status. Per the ED attending was felt that the patient had the strokelike symptoms and as a result the patient received IV TPA and was sent to ICU. While in the ICU later close to the evening time was notified by nurse that the patient had a headache so I notified her to obtain a CT of the head stat. The CT of the head shows a bleed with bilateral neural area of acute intracranial hemorrhage with the reported new septal left-sided that midline shift. As a result patient received aminocaproic acid 3000mg and I was notified that she recieved Crypoprecipitiate. I also gave her one time mannitol. Notified the nurse to keep the head of the bed at 30 and keep the systolic blood pressure at 120 or less. I spoke with the patient's stepdaughter via phone as well as the ICU nurse. It seems that the family were in acceptance of the transfer for neurosurgical evaluation. Patient was transferred to [facility] and neurosurgeon was Dr. Josué Banegas. I personally spoke with Dr. Josué Banegas about this case.
== END 2023-02-15 21:30 | disposition other institution (70) | DRG 66 ==
LOC: EC 14:44 → 2SICU 15:57
PROVIDERS: ADMIT Family Medicine; ATTEND Family Medicine
DX: I62.9 Nontraumatic intracranial hemorrhage, unspecified (principal); R47.01 Aphasia; E78.5 Hyperlipidemia, unspecified; I10 Essential (primary) hypertension; I25.10 Atherosclerotic heart disease of native coronary artery without angina pectoris; K21.9 Gastro-esophageal reflux disease without esophagitis; Z85.118 Personal history of other malignant neoplasm of bronchus and lung; Z79.899 Other long term (current) drug therapy; M19.90 Unspecified osteoarthritis, unspecified site; Z87.19 Personal history of other diseases of the digestive system; Z90.49 Acquired absence of other specified parts of digestive tract; Z88.1 Allergy status to other antibiotic agents; Z88.2 Allergy status to sulfonamides; Z98.42 Cataract extraction status, left eye; Z98.41 Cataract extraction status, right eye
CPT/HCPCS: 36415; 37195; 70450; 70496; 70498; 71045; 80053; 82550; 84484; 85025; 85027; 85384; 85610; 85730; 86850; 86900; 86901; 93005; 96365; 96366; 99291